=== PATIENT | female | born 1975 | race Caucasian/White ===

== ENCOUNTER 2025-05-03 20:54 | Emergency (ER) | payer BC, SELFPAY ==
--- NOTE | ~2025-05-03 | XR_ITS ---
XR knee RT 3V 05/04/2025 00:01 INDICATION: Right knee pain PROCEDURE: 4 views right knee COMPARISON: No prior studies for comparison. FINDINGS: Fracture, dislocation or subluxation is not identified. No significant joint effusion. No f oreign bodies. The soft tissues appear within normal limits. No foreign bodies are identified. IMPRESSION: 1: NO ACUTE BONE OR JOINT ABNORMALITY IDENTIFIED. Reviewed, dictated and finalized at location A.
--- OUTSIDE RECORDS SUMMARY | 2025-05-03 20:56 | XMS_ITS | Clinical Summary ---
Author Organization [place] [id number] Address [address] [place] [address] Care Team Providers Care Jacquard Loom Fixer Name Role Phone Juan Pino MD Primary Care Provi catina Allergies No known active allergies Medications aspirin 81 mg enteric coated tablet Take 1 tablet (81 mg total) by mouth daily Active valsartan-hydroC HLOROthiazide (DIOVAN-HCT) 80-12.5 mg per tabletIndication s:hypertension Take 1 tablet by mouth daily 90 tablet 3 11/20/2023 Active Active Problems Problem Noted Date Diagnosed Date Mixed anxiety and depressive disorder 01/20/2021 Hyperlipidemia 04/11/2018 Essential hypertension 04/11/2018 Depression 08/15/2016 Resolved Problems Problem Noted Date Diagnosed Date Resolved Date Morbid (severe) obesity due to excess calories 10/18/2023 10/18/2023 Body mass index 40.0-44.9, adult ([facility]) 10/18/2023 10/18/2023 Hypertensive disorder 04/11/20182023 Lipidemia 08/15/2016 10/18/2023 Essential (primary) hypertension 08/15/2016 10/18/2023 Immunizations Immunization Administration Dates Next Due Influenza, Unspecified 11/20/2023(Deferr ed: Patient Refused),10/18/2023(Deferred: Patient Refused) Surgical History Surgery Date Site/Laterality Comments APPENDECTOMY Medical History Medical History Date Comments Arthritis Pulmolithiasis Migraines in the past Depression Family History Medical History Relation Name Comments Arthritis Brother Mental illness Brother Arthritis Father Gout Father Hypertension Father Mental illness Father Arthritis Mother Hypertension Mother Kidney disease Mother Mental illness Mother Breast cancer Paternal Great-Grandmother Relation Name Status Comments Brother Father Alive Mother Paternal Great-Grandmother Social History Tobacco Use Types Packs/Day Years Used Date Smoking Tobacco: Every Day Cigarettes 0.5 30 Smokeless Tobacco: Never PHQ-2 Answer Date Recorded PHQ-2 Total Score (If total score is 3 or more points, staff should administer the PHQ-9) 0 10/18/2023 Personal Safety Answer Date Recorded Getting School Help Needed Not on file 10/17 Comments No Sex and Gender Information Value Date Recorded Sex Assigned at Not on file Legal Sex Female 2:36 PM CDT Gender Identity Female 10/19/2023 10:26 AM [employer] AP[employer]ENT[employer] Sexual Orientation Straight 10/25/2023 7: 00 PM [employer] APPRENTICE Obstetrics History Para Term AB IAB SAB Ectopic Multiple Livin g Live Births 2 1 1 Date Outcome GA Total Labor Labor/2nd/3rd Weight Sex Type Anes PTL Adeline A1 A5 Name Clin Term Last Filed Vital Signs Vital Sign Reading Time Taken Comments Blood Pressure 126/82 11/20/2023 1:01 PM [employer]ONEM[employer] APPRENTICE Pulse 108 11/20/2023 1:01 PM [employer]ONEM[employer] APPRENTICE Temperature - - Respiratory Rate 18 11/20/2023 1:01 PM [employer]ONEMASON APPRENTICE Oxygen Saturation 93% 11/20/2023 1:01 PM STONEMASON APPRENTICE Inhaled Oxygen Concentration - - Weight 100.7 kg (222 lb) 11/20/2023 1:01 PM [employer]ONEM[employer]ON APPRENTICE Height 154.9 cm (5' 1) 11/20/2023 1:01 PM [employer]ONEM[employer]ON APPRENTICE Body Mass Index 41.95 11/20/2023 1:01 PM [employer]ONEM[employer] APPRENTICE Plan of Treatment Health Maintenance Due Date Last Done Comments Colon Cancer Screening-Colonoscopy 1977 Hepatitis C Screening 1977 DTaP/Tdap/Td Vaccine (1 - Tdap) 1988 Hepatitis B Screening 1995 Pneumococcal vaccine <65 (1 of 2 - PCV) 1996 Cervical Cancer Screening 01/27/2015 01/27/2014 Depression Screening 10/18/2024 10/18/2023 Breast Cancer Screening-Mammogram 10/25/2024 024 Regular Well Visit/Exam 18-64 11/20/2024 11/20/2023 Influenza Vaccine (#1) 2025 Procedures Procedure Name Priority Date/Time Associated Diagnosis Comments SCREENING MAMMOGRAM BILATERAL W TONG Schedule Routine, Read Routine (OP Routine) 10/25/2023 3:42 PM [employer]ONEM[employer] APPRENTICE Annual physical exam THINPREP PAP Routine 01/27/2014 10:06 AM CDT from Last 3 Months or Most Recently Relevant to Health Maintenance Results * Screening Mammogram Bilateral W Tong (10/25/2023 3:42 PM STONEMASON APPRENTICE) Anatomical Region Laterality Modality Breast Bilateral Mammography Impressions 10/25/2023 4:06 PM STONEMASON APPRENTICE BI-RADS ATLAS category (overall): 1 - Negative There is no mammographic evidence of malignancy. A 1 year screening mammogram is recommended. The patient has been or will be contacted. We recommend annual screening mammography for women at average risk of breast cancer beginning at age 40, based on guidelines of the [employer] (ACR Practice Parameter for the Performance of Screening and Diagnostic Mammography) and [employer]. For women with and elevated risk of breast cancer, please refer to the ACR Practice Parameter for specific screening recommendations. The patient will be entered into a reminder system with a target due date of 1 year for her next screening exam. Narrative 10/25/2023 4:06 PM STONEMASON APPRENTICE Screening Mammogram Bilateral W Tong: 10/25/23 The study was acquired using full field digital technology and interpreted from soft copy. 2D digital mammographic views, as well as 3D digital tomosynthesis were performed in the CC and MLO projections. CLINICAL: Annual physical exam (Up with labs). No relevant medical history has been documented for this patient. History of breast cancer in Paternal Great-Grandmother. COMPARISON: Baseline Screening Mammography. No prior mammography is available for comparison. BREAST TISSUE: The breasts have scattered areas of fibroglandular density. FINDINGS: No suspicious masses, suspicious calcifications, or other suspicious findings are seen within either breast. 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 Interpretation Negative for intraepithelial lesion or malignancy. 02/03/14 District Fire Chief: PINA Andino(ASCP) 02/03/14 Verified By: PINA Andino(ASCP) electronic signature [facility], Department of Pathology For questions regarding this case, call ext. [phone] CPT Code(s) 58489 Clinical History LMP: N : N : N IUD: Y Hormone Therapy: N Postmenopausal: N Previous surgery date and type: N Hysterectomy: N Chemotherapy: N [place] Exposure: N Radiation: N Previous Abnormal Pap? Details: N Diagnostic or Screening Pap Test: Screening Performed by [facility], [address] [place] [id number] [email or web address], Grant Bauer MD - Lab. Director 01/27/2014 10:0 6 AM CDT 01/28/2014 10:02 AM CDT us Luna Do NP LAB PATHOLOGY ORDERABLES Fin al Result [facility] [employer] HISTORICAL RESULTS from Last 3 Months or Most Recently Relevant to Health Maintenance Insurance Support Your App [facility] OOS Care Teams Jacquard Loom Fixer Relationship Specialty Start Date End Date Juan Pino MD [address] [place] [address] PCP - General Family Medicine 10/18/23
--- OUTSIDE RECORDS SUMMARY | 2025-05-03 20:56 | XMS_ITS | Data Portability ---
Author Organization [facility] Address [address] [place] [address] Assessment No assessment recorded. Plan of Treatment Reminders Order Date Submit Date Provider Last Modified By Organization Details Last Modified Time Details Appointments None recorde d. Lab pap, IG + reflex HPV (16+18+ 45) 2021 022 ART Whitney [facility] (Lab), [address] [place], [address], 2 10:13:21 CMP, serum or plasma 2021 022 [facility] (Lab), [address] [place], [address], 2 14:15:44 lipid panel w/ direct LDL, serum 2021 022 [facility] (Lab), [address] [place], [address], 2 14:15:44 HbA1c (hemogl obin A1c), blood 2021 022 [facility] [address] [place], [address], 2 14:15:45 microal bumin/c reatini ne, mass ratio, urine 2021 022 [facility] (Lab), [address] [place], [address], 2 14:15:45 CMP, serum or plasma 2018 019 [facility] (Lab), [address] [place], [address], 9 20:35:26 lipid panel w/ direct LDL, serum 2018 019 [facility] (Lab), [address] [place], [address], 9 21:15:39 TSH, serum, reflex free T4 2018 019 [facility] (Lab), [address] [place], [address], 9 22:32:43 Referral None recorde d. Procedures None recorde d. Surgeries None recorde d. Imaging XR, knee 2017 018 ART Not available 8 00:59:47 Medication Orders Lexapro 10 mg tablet 2020 021 [facility], [address] [place], [address], 1 13:08:47 Lexapro 10 mg tablet 2018 019 hlucasfoster [facility], [address], [address], 1 13:06:48 meloxic am 7.5 mg tablet 2017 018 INTERFACE [facility], [address], [address], 8 13:05:47 atorvas tatin 10 mg tablet 2017 018 INTERFACE [facility], [address], [address], 8 15:15:12 amlodip ine 5 mg tablet 2017 018 [facility], [address] [facility] [address] [place] [address], [address], 8 15:15:23 lisinop ril 20 mg-hydr ochloro thiazid e 25 mg tablet 2017 018 [facility], [address] [facility] [address] [place] [address], [address], 8 15:15:12 Adult Low Dose Aspirin 81 mg tablet, delayed release 2017 018 [facility], [address] [facility] [address] [place] [address], [address], 8 15:15:12 Patient TargetsNo targets recorded. Patient Instructions Encounter Date Encounter Id Patient Instructions Last Modified By Organization Details Last Modified Time 04/11/2018 [id number] Quitting Tobacco: Care Instructions hlucasfoster Not available 04/11/2018 15:14:59 high cholesterol: care instructions hlucasfoster Not available 04/11/2018 17:19:16 FU 6 months. Health maint utd with customer service administrator. Records requestd from prev provider. hlucasfoster Not available 04/11/2018 17:19:16 05/07/2018 [id number] FU prn hlucasfoster Not available 15:40:37 06/12/2019 [id number] learning about high blood pressure hlucasfoster Not available 06/12/2019 14:38:59 learning about mood disorders hlucasfoster Not available 06/12/2019 14:38:59 Phone FU 2 weeks, OV 6 weeks. hlucasfoster Not available 06/12/2019 20:33:02 01/20/2021 [id number] Quitting Tobacco: Care Instructions hlucasfoster Not available 01/20/2021 13:17:04 learning about high blood pressure hlucasfoster Not available 01/20/2021 13:17:04 high cholesterol: care instructions hlucasfoster Not available 01/20/2021 13:17:04 Lab orders mailed to her previously. Encouraged to have done. hlucasfoster Not available 01/20/2021 13:17:03 03/28/2022 [id number] A healthy lifestyle: care instructions hlucasfoster Not available 03/28/2022 14:47:38 Quitting Tobacco: Care Instructions hlucasfoster Not available 03/28/2022 14:46:22 FU one year and prn hlucasfoster Not available 03/28/2022 14:51:35 Reason for Referral None Reported. Results Created Date Observation Date Name Description Value Unit Range Abnormal Flag Note LastModifiedBy Organization Detail LastModifiedTime 06/12/20 19 06/12/2019 CMP, serum or plasm a glucose, serum 98 mg/dL 65-99 Not Available [facility] (Lab) [address] [facility], [place], [address], 06/12/2019 20:35:26 06/12/2006/12/2019 CMP, serum or plasm a BUN 8 mg/dL 8- Not Available [facility] (Lab) [address] [facility], [place], [address], 06/12/2019 20:35:26 06/12/2006/12/2019 CMP, serum or plasm a creatinine, serum 0.76 mg/dL 0.50-[address] [facility] (Lab) [address] [facility], [place], [address], 06/12/2019 20:35:26 06/12/2006/12/2019 CMP, serum or plasm a BUN/creatnin e ratio 10.5 Not Available [facility] ([facility] [address] [facility], [place], [address], 06/12/2019 20:35:26 06/12/2006/12/2019 CMP, serum or plasm a sodium, serum 139.9 mEq/L 136.0- 144.[address] [facility] (Lab) [address] [place], [address], 06/12/2019 20:35:26 06/12/2006/12/2019 CMP, serum or plasm a potassium, serum 3.8 mmol/ L 3.5-5. [address] [facility] (Lab) [address] [place], [address], 06/12/2019 20:35:26 06/12/20 19 06/12/2019 CMP, serum or plasm a chloride, serum 95 mmol/ l 101-11 1 low Not Available [facility] (Lab) [address], [place], [address], 06/12/2019 20:35:26 06/12/20 19 06/12/2019 CMP, serum or plasm a carbon dioxide total 32.0 mmol/ L 21.0-3 2.0 Not Available [facility] (Lab) [address], [place], [address], 06/12/2019 20:35:26 06/12/20 19 06/12/2019 CMP, serum or plasm a aniongp 17.0 mmol/ L Not Available [facility] (Lab) [address], [place], [address], 06/12/2019 20:35:26 06/12/20 19 06/12/2019 CMP, serum or plasm a calcium, serum 10.2 mg/dL 8.2-10 .[address] [facility] (Lab) [address], [place], [address], 06/12/2019 20:35:26 06/12/2006/12/2019 CMP, serum or plasm a total protein 7.2 g/dL 6.7-8. 2 Not Available [facility] (Lab) [address] [place], [address], 06/12/2019 20:35:26 06/12/20 19 06/12/2019 CMP, serum or plasm a albumin, serum 4.6 g/dL 3.5-5. 5 Not Available [facility] (Lab) [address] [place], [address], 06/12/2019 20:35:26 06/12/2006/12/2019 CMP, serum or plasm a agratio 1.[address] [facility] (Lab) [address] [place], [address], 06/12/2019 20:35:26 06/12/20 19 06/12/2019 CMP, serum or plasm a bilt 0.4 mg/dL 0.0-1. [address] [facility] (Lab) [address] [place], [address], 06/12/2019 20:35:26 06/12/20 19 06/12/2019 CMP, serum or plasm a AST 36.5 U/L 10.0-[address] [facility] (Lab) [address], [place], [address], 06/12/2019 20:35:26 06/12/20 19 06/12/2019 CMP, serum or plasm a ALT 50.1 U/L 10.0-[address] [facility] (Lab) [address], [place], [address], 06/12/2019 20:35:26 06/12/2006/12/2019 CMP, serum or plasm a alk phos 66.6 IU/L 42.0-[address] [facility] (Lab) [address] [place], [address], 06/12/2019 20:35:26 06/12/2006/12/2019 CMP, serum or plasm a osmol 277.0 mOsm/ L 275.0- 301.[address] [facility] (Lab) [address] [place], [address], 06/12/2019 20:35:26 06/12/2006/12/2019 CMP, serum or plasm a eGFR, AM 108 m/lmi n/1.7 3_m >=[address] [facility] (Lab) [address] [place], [address], 06/12/2019 20:35:26 06/12/20 19 06/12/2019 CMP, serum or plasm a eGFR, non- AM 89 mL/mi n/1.7 3/m >=60 Not Available [facility] (Lab) [address], [place], [address], 06/12/2019 20:35:26 06/12/20 19 06/12/2019 lipid panel w/ direc t LDL, serum cholesterol 189.2 mg/dL 140.0- 200.0 Not Available [facility] (Lab) [address], [place], [address], 06/12/2019 21:15:39 06/12/20 19 06/12/2019 lipid panel w/ direc t LDL, serum triglyceride s 153 mg/dL <=150 high Not Available [facility] (Lab) [address] [place], [address], 06/12/2019 21:15:39 06/12/20 19 06/12/2019 lipid panel w/ direc t LDL, serum HDL cholesterol 54.9 mg/dL 40.0-1 00.0 Not Available [facility] (Lab) [address], [place], [address], 06/12/2019 21:15:39 06/12/20 19 06/12/2019 lipid panel w/ direc t LDL, serum LDL 125 mg/dL <=100 high Not Available [facility] (Lab) [address], [place], [address], 06/12/2019 21:15:39 06/12/20 19 06/12/2019 lipid panel w/ direc t LDL, serum cholhdl 3.40 mg/dL 0.00-4 .98 Not Available [facility] (Lab) [address], [place], [address], 06/12/2019 21:15:39 06/12/20 19 06/12/2019 TSH, serum , refle x free T4 TSH 1.07 uIU/m L 0.50-4 .50 Not Available [facility] (Lab) [address] [place], [address], 06/12/2019 22:32:43 03/29/20 22 03/31/2022 IGP, APTIM A HPV, RFX 16/18 ,45 diagnosis: [facility] NEGAT GENET FOR INTRA EPITH ELIAL LESIO N OR NADER SERJIO . Perfo rmed at: WB Not Available [facility] [address] [place], [address], 03/31/2022 10:13:21 03/29/20 22 03/31/2022 IGP, APTIM A HPV, RFX 16/18 ,45 specimen adequacy: [facility] Satis facto ry for evalu ation . Endoc ervic al and/o r squam ous metap lasti c cells (endo cervi nhan compo nent) are prese nt. Perfo rmed at: WB Not Available [facility] (Lab) [address] [facility], [place], [address], 03/31/2022 10:13:21 03/29/20 22 03/31/2022 IGP, APTIM A HPV, RFX 16/18 ,45 clinician provided ICD10 [facility] Z01.4 19 Perfo rmed at: WB Not Available [facility] (Lab) [address] [place], [address], 03/31/2022 10:13:21 03/29/20 22 03/31/2022 IGP, APTIM A HPV, RFX 16/18 ,45 performed by: [facility] Skye Keller Cytobruno echsanjuana medina t (ASCP ) Perfo rmed at: WB Not Available [facility] ([facility] [address] [place], [address], 03/31/2022 10:13:21 03/29/20 22 03/31/2022 IGP, APTIM A HPV, RFX 16/18 ,45 Pap smear, 1 slide . Perfo rmed at: WB Not Available [facility] (Lab) [address] [place], [address], 03/31/2022 10:13:21 03/29/20 22 03/31/2022 IGP, APTIM A HPV, RFX 16/18 ,45 note: PAPSMR The Pap smear is a scree edson test desig ewdin to aid in the detec tion of feliciano ligna nt and malig nant condi tions of the uteri ne cervi x. It is not a diagn ostic proce dure and shoul d not be used as the sole means of detec ting cervi nhan cance r. Both false -posi tive and false -nega tive repor ts do occur . . Perfo rmed at: WB Not Available [facility] (Lab) [address] [facility], [place], [address], 03/31/2022 10:13:21 03/29/20 22 03/31/2022 IGP, APTIM A HPV, RFX 16/18 ,45 test methodology: IGLPAP This liqui d based ThinP rep(R ) pap test was scree edwin with the use of an image guide d yury chen. Perfo rmed at: WB Not Available [facility] [address] [facility], [place], [address], 03/31/2022 10:13:21 03/29/20 22 03/31/2022 IGP, APTIM A HPV, RFX 16/18 ,45 HPV aptima Negati ve negati ve This nucle ic acid ampli ficat ion test detec ts fourt een high- risk HPV types (16,1 8,31, 33,35 ,39,4 5,51, 52,56 ,58,5 9,66, 68) witho ut diffe renti ation . Perfo rmed at: =G Not Available [facility] (Lab) [address] [facility], [place], [address], 03/31/2022 10:13:21 05/13/20 18 05/10/2018 XR, knee No observ ation record ed. [facility] [address], [place], [address], 05/21/2018 14:36:34 05/20/20 18 01/30/2018 XR, foot No observ ation record ed. BARCODE Not Available 2017 09:08:45 06/05/20 18 MRI knee RT wo con [facility] [address] [place] [address] EXAMIN ATION: MRI right knee withou t contra st ACCESS ION: [id number] EXAM DATE/T JESSIE: 018 1:51 PM REASON FOR EXAM: Right it risk advisor ior latera l knee pain. Histor y of twisti ng injury one month prior COMPAR WESLEY: None TECHNI QUE: Multip lanar, multis equenc e MRN images target ed to the right knee obtain ed withou t contra st. FINDIN GS: Physio logic joint fluid presen t. There is a tiny Prescott' s cyst. There is a comple te tear of the anteri or crucia te ligame nt at its femora l attach ment. Alignm ent is anatom ic. No signif icant tibiof emoral sublux ation. No signif icant perili gament ous edema seen to sugges t an acute injury . There is an accomp anying osseou s contus ion of the it risk advisor ior latera l tibial platea u. There is no recipr ocal the femora l condyl e contus ion identi fied. The proxim al fibula r collat eral ligame nt is thicke edwin and diamet er sugges ting a grade 2 sprain . Remain ing it risk advisor ior latera l corner struct ures appear to be normal . Poplit eal tendon is unrema rkable There is feathe ry edema of the latera l head of the gastro cnemiu s compat ible with a grade 1 muscle strain . No other areas of muscle edema seen. [employer] ior crucia te ligame nt is normal . The medial collat eral ligame nt is unrema rkable . Semime mbrano mendel is normal . Small septat ed cystic struct ure closel y associ ated with the medial menisc al anteri or horn and root juncti on. 8 is uncert ain if this repres ents a para menisc al cyst relate d to an anteri or menisc al horn root juncti on menisc al tear or a small gangli on. Latera l menisc us is intact . Intact medial and latera l patell ar retina cula. The extens or mechan ism includ ing the georges ceps and patell ar tendon are normal . Mass subtle locali zed edema in the superi or-lat eral aspect of Hoffa' s fat pad can be seen with patell ar tendon latera l femora l condyl e fricti on syndro me. There is medial patell ar articu lar cartil age diffus e thinni ng. There is cartil age surfac e frayin g over the patell ar apex. Partia l thickn ess trochl ear cartil age fissur ing presen t. Mild cartil age thinni ng over the centra l weight bearin g medial femora l condyl e noted. No full-t hickne ss tibiof emoral subcho ndral defect s seen. IMPRES LORENA:= ==== 1. Right knee comple te anteri or crucia te ligame nt tear at its femora l attach ment, appear ing chroni c withou t signif icant perili gament ous soft tissue edema. 2. Persis tent small bony contus ion of the it risk advisor ior latera l tibial platea u withou t recipr ocal femora l condyl e injury . 3. Manager Radio olater al corner injury with a grade 2 sprain of the fibula r collat eral ligame nt. 4. Medial menisc al anteri or horn root juncti on possib le tear with adjace nt small promin ent menisc al cysts as is a gangli on. 5. Subtle superi or-lat eral Hoffa' s fat pad edema that can be seen with patell ar tendon latera l femora l condyl e fricti on syndro me. 6. Early chondr omalac ia, predom inantl y with medial and apical patell ofemor al and mild medial compar tment cartil age diseas e. 7. See above for detail . Electr onical ly Signed By: Melquiades Gutierrez MD on 018 3:12 PM [facility] [address] [facility], [place], [address], 06/10/2018 18:50:08 06/05/20 18 06/05/2018 MRI, knee, w/o contr ast No observ ation record ed. [email or web address] [facility] Fax [address] [facility], [place], [address], 06/06/2018 18:14:56 Result Notes None recorded. Problems Name Problem SNOMED Code Status Onset Date Resolution Date Notes Provider Name and Address Organization Details Recorded Time Essential hypertension 75465801 Active 2017 Not Available [facility] 21:32:39 Tobacco user 076177806 Active 2017 Not Available [facility] 21:32:39 Hypertensive disorder 85295086 Active 2017 Not Available [facility] 21:32:39 Hyperlipidemi a 28563115 Active 2017 Not Available [facility] 21:32:39 Mixed anxiety and depressive disorder 909736753 Active 2020 Not Available [facility] 21:32:39 Problem Notes None recorded. Medical Equipment None Reported. Allergies No known drug allergies Medications Name Sig Start Date Stop Date Status Note LastModified by Organization Details LastModified Time atorvastatin 10 mg tablet Take 1 tablet by mouth once daily active Not Available Not Available No t Available prednisone 20 mg tablet TAKE 2 TABLETS BY MOUTH ONCE DAILY FOR 5 DAYS active Not Available Not Available No t Available amlodipine 5 mg tablet TAKE 1 TABLET BY MOUTH ONCE DAILY active Not Available Not Available No t Available meloxicam 7.5 mg tablet TAKE 1 TABLET BY MOUTH TWICE DAILY NEEDED 2017 active Not Available Not Available Not Avai lable lisinopril 20 mg-hydrochloro thiazide 25 mg tablet TAKE 1 TABLET BY MOUTH ONCE DAILY active Not Available Not Available No t Available Baby Aspirin 81 mg chewable tablet Chew 1 tablet every day by oral route. active Not Available Not Available No t Available Adult Low Dose Aspirin 81 mg tablet,delayed release Take 1 tablet every day by oral route. 2017 active Not Available Not Available Not Avai lable escitalopram 10 mg tablet TAKE 1 TABLET BY MOUTH ONCE DAILY active Not Available Not Available No t Available Vitals Date Recorded Body height Body mass index (BMI) Body weight Oxygen saturation Oxygen saturation in Arterial blood by Pulse oximetry Body temperature Systolic And Diastolic Provider Name and Address Organization Details Last Updated DateTime 2 154.94 cm 39.6 kg/m2 18995.6 1 g 98 % 98 % 97.9 [degF] 134/80 mm[Hg] Holly Perdomo MA [facility] 2 14:08:59 Date Recorded Body weight Heart rate Body temperature Systolic And Diastolic Provider Name and Address Organization Details Last Updated DateTime 04/11/2018 64494.38 g 88 /min 98.2 [degF] 127/90 mm[Hg] Kaela Newsome MA [facility] 04/11/2018 14:54:40 Date Recorded Body weight Heart rate Body temperature Systolic And Diastolic Provider Name and Address Organization Details Last Updated DateTime 05/07/2018 13069.35 g 91 /min 98 [degF] 124/87 mm[Hg] Kaela Newsome MA [facility] 05/07/2018 12:55:40 Date Recorded Body height Body mass index (BMI) Body weight Heart rate Body temperature Systolic And Diastolic Provider Name and Address Organization Details Last Updated DateTime 9 158.75 cm 39.1 kg/m2 09880.3 4 g 114 /min 98.8 [degF] 120/86 mm[Hg] Kaela Newsome MA [facility] 9 14:16:40 Social History Question Answer Notes LastModified by Organizat ion Details LastModified Time Tobacco Smoking Status Current Every Day Smoker Kaela Newsome MA null, [facility] 04/11/2018 14:56:52 What Was The Date Of Your Most Recent Tobacco Screening? 03/28/2022 Information not available 03/28/2022 On What Date Was Tobacco Cessation Counseling Provided? 03/28/2022 Information not available 03/28/2022 Sex: Unknown Functional Status None recorded. Mental Status None recorded. Family History Nothing Reported. Medical History Condition Response Coronary Artery Disease N Other N Atrial Fibrillation Y High Blood Pressure Y Depression N COPD N Blood Clots N Anxiety Disorder N Muscle, Joint, or Bone Problems N Acid Reflux (GERD) N Cancer N Stroke N Headaches N Kidney or Bladder Problems N Eating Disorder N Skin Problems N Asthma N Allergies N Substance Abuse N Hepatitis N ADHD N High Cholesterol N Liver Disease N Schizophrenia N Thyroid Problems N GI Problems N Anemia N Heart Attack ([place]) N Diabetes N Seizures/Epilepsy N Osteoporosis N Heart Failure N Gynecological HistoryNo gynecological history recorded. Obstetrics History GPAL:G 0 P 0 0 0 0 Past Encounters Encounter ID Performer Location Encounter Start Date Encounter Closed Date Diagnosis/Indication Diagnosis SNOMED-CT Code Diagnosis ICD10 Code Diagnosis Note [id number] Mireille zarco MD [facility] (Adult Med) [address] [place] [address] 04/11/2018 14:32:58 04/11/2018 16:50:05 Tobacco user 217289872 Z72.0 Cutting back and plans stop. Hypertensive disorder 38 640680 I10 Hyperlipidemia 99395107 E78.5 Foot callus 542835250 L8 4 Described DAILY debridemen t at home with salicylic acid, shave, pumice stone. May need to return to different tube splicer due to extent of callous on great toe. [id number] Mireille zarco MD [facility] (Adult Med) [address] [place] [address] 05/07/2018 12:40:45 05/07/2018 15:49:52 Pain in right knee 5098956540 06709 M25.561 ? meniscal injury. Crutches, ice three times daily, avoid wt bearing and if still with sx, consider MRI and ortho eval. 7-10 days. If MRI needed, would like go to [facility]. [id number] Mireille zarco MD [facility] (Adult Med) [address] [place] [address] 06/12/2019 14:03:20 06/12/2019 15:22:19 Essential hypertension 22520225 I10 at goal Fatigue 39601426 R53.83 suspect Depressive disorder 3548 9007 F32.9 FU by phone or portal 2 weeks and OV 6 weeks. Risks, benefits side effects and time to onset medication reviewed. [id number] Mireille zarco MD [facility] (Adult Med) [address] [place] [address] 01/20/2021 12:45:53 01/21/2021 11:36:52 Mixed anxiety and depressive disorder 857282442 F41.8 Chronic, untreated. Retry Lexapro - minimum 8 week trial and fu 8 weeks Essential hypertension 32246086 I10 Pt reports at goal but not actually checking BP. Update labs. Hyperlipidemia 82595332 E78.5 Compliant with statin Tobacco user 001135118 Z 72.0 Cutting back and plans stop eventually . [id number] Mireille zarco MD [facility] (Peds) [address] [place] [address] 03/28/2022 13:54:52 03/29/2022 13:09:39 Essential hypertension 35866827 I10 At goal off medication after wt loss and cut back tobacco. Cont with same. Monitor home BP, is aware of goal BP < 140/90/ Hyperlipidemia 60625648 E78.5 Stopped statin. Hold for now. ASCVD risk low with resolution of HTN. Smoker 97998018 F17.200 Gynecologi c examination 39713875 Z01.419 Will contact customer service administrator about change out Mirena Obesity 382038064 E66.9 Health Concerns Section Related Observation LastModified by Organization Detai ls LastModified Time None Recorded Concern Status LastModified by Organization Details LastModified Time None Recorded Advance Directives Directive None Recorded Payers Insurance Date Sequence Insurance Name Policy Number Policy Ang Covered Member ID Ang Member ID Guarantor Name 03/28/2022 1 [id number] Hiro Trinidad [id number] Veronica Trinidad Notes Date Note Type Note Provider Name and Address Organization Details Recorded Time 04/11/2018 text/html HTN contolled.Hyperlipi demia - on statinTobacco - cutting back Had labs wtih prev PCP last month. Believes all normal except maybe anemic, but always anemic Mireille Felton MD Attn: Accounting,[address] [place], [address], [facility] 04/11/2018 17:22:26 05/07/2018 text/html 04/27 Slipped on wet concrete steps at relatives house. Rapidly extended right leg in effrt to bance then stepped now hard on the leg, felt/heard a pop in R knee and immediate pain. Since then pain at rest and with ambulate, some swelling. SImilar sx 20 years ago after twisting injury (resolved). Mireille Felton MD Attn: [address]ing[address] , [place], [address], [facility] 05/07/2018 15:40:49 06/12/2019 text/html Fatigue, malaise , crying spells and anxiousness. Under stress with impending move, other issues but feels her emotions are not proportional. Hx of similar sx in past, recalls Lexapro and Abilify in past. Good support, no etoh, drugs, + tobacco but has cut back. HTN contolled. Needs updated labs.Hyperlipidemia - on statin Mireille Felton MD Attn: Accounting,[address] [facility], [place], [address], [facility] - [facility] 06/12/2019 20:33:24 01/20/2021 text/html Fatigue, malaise , crying spells and anxiousness. Under stress due to variety of issues but feels her emotions are not proportional. Reported same sx last OV 05/2019 and Lexapro restarted but only took for short time without benefit and didn't fu. No SI/STGood support, no etoh, drugs, + tobacco but has cut back. HTN good but only checking sporadically. Last check 6 months ago 120/70s. Needs updated labs. Hyperlipidemia - on statin Health maint - last pap 5 years. Deferring mamm due to low risk. Mireille Felton MD Attn: Accounting,[address] [facility], [place], [address], [facility] 01/20/2021 13:17:21 03/28/2022 text/html Last OV 01/2021 HTN - stopped taking all meds 6 months ago and at goal today. No home checks. Ran out of meds and never requested refills. Hyperlipidemia - stopped statin Health maint - last pap > 5 years. Deferring mamm due to low risk. Tobacco - 3-4 per day, down from half pack per day. Obesity - believes lost 20 lbs last month when experienced allergic reaction after mowing and had malaise, fatigue, feeling hot, rash and poor appetite with resultant wt loss. Went to UC after week of sx, rcd prednisone and had complete resolution of sx. Mireille Felton MD Attn: Accounting,[address] [facility], [place], [address], [place] 03/28/2022 15:01:46 OBGyn Episode No OBEpisode recorded.
--- OUTSIDE RECORDS SUMMARY | 2025-05-03 20:56 | XMS_ITS | Encounter Summary ---
Author Organization [facility] Facility Care Team Providers Care River Guide Name Role Phone Mireille Felton MD Primary Care Prov ider Juan Pino MD Primary Care Provi catina Encounter Details Date Type Department Care Team (Latest Contact Info) Description 12/30/2013 Orders Only MMG CLINCONV ProviderDoug MD [address] [place] [address] Social History Tobacco Use Types Packs/Day Years Used Date Smoking Tobacco: Never Assessed Comments Unknown Sex and Gender Information Value Date Recorded Sex Assigned at Not on file Legal Sex Female 2:36 PM CDT Gender Identity Female 10/19/2023 10:26 AM UTILITY SALES AND SERVICE MANAGER Sexual Orientation Straight 10/25/2023 7: 00 PM UTILITY SALES AND SERVICE MANAGER documented as of this encounter Plan of Treatment Not on file documented as of this encounter Procedures Procedure Name Priority Date/Time Associated Diagnosis Comments SCAN - LABS 08/15/2016 12:00 AM CDT documented in this encounter Results * SCAN - LABS (08/15/2016 12:00 AM CDT) Narrative 08/15/2016 12:00 AM CDT Ordered by an unspecified provider. Historical Provider Final Res ult documented in this encounter Visit Diagnoses Not on filedocumented in this encounter Care Teams River Guide Relationship Specialty Start Date End Date Mireille Felton MD PCP - General Family Medicine 06/14/18 10/17/23 Juan Pino MD [address] [address] PCP - General Family Medicine 10/18/23 documented as of this encounter
--- OUTSIDE RECORDS SUMMARY | 2025-05-03 20:56 | XMS_ITS | Referral Summary ---
Author Organization [place] [id number] [facility] Address [address] [place] [address] Care Team Providers Care Shoe Worker Name Role Phone Juan Pino MD Primary [...] 10/18/2023 10/18/2023 Body mass index 40.0-44.9, adult ([facility]) 10/18/2023 10/18/2023 Hypertensive disorder 04/11/20182023 Lipidemia 08/15/2016 10/18/2023 Essential (primary) hypertension 08/15/2016 10/18/2023 Immunizations Immunization Administration Dates Next Due Influenza, Unspecified 11/20/2023(Deferr ed: Patient Refused),10/18/2023(Deferred: Patient Refused) Social History Tobacco Use Types Packs/Day Years [...] CDT Gender Identity Female 10/19/2023 10:26 AM MANPOWER DEVELOPMENT ADVISOR Sexual Orientation Straight 10/25/2023 7: 00 PM MANPOWER DEVELOPMENT ADVISOR Last Filed Vital Signs Vital Sign Reading Time Taken Comments Blood Pressure 126/82 11/20/2023 1:01 PM MANPOWER DEVELOPMENT ADVISOR Pulse 108 11/20/2023 1:01 PM MANPOWER DEVELOPMENT ADVISOR Temperature - - Respiratory Rate 18 11/20/2023 1:01 PM MANPOWER DEVELOPMENT ADVISOR Oxygen Saturation 93% 11/20/2023 1:01 PM MANPOWER DEVELOPMENT ADVISOR Inhaled Oxygen Concentration - - Weight 100.7 kg (222 lb) 11/20/2023 1:01 PM MANPOWER DEVELOPMENT ADVISOR Height 154.9 cm (5' 1) 11/20/2023 1:01 PM MANPOWER DEVELOPMENT ADVISOR Body Mass Index 41.95 11/20/2023 1:01 PM MANPOWER DEVELOPMENT ADVISOR Plan of Treatment Not on file Procedures Procedure Name Priority Date/Time Associated Diagnosis Comments SCREENING MAMMOGRAM BILATERAL W TONG Schedule Routine, Read Routine (OP Routine) 10/25/2023 3:42 PM MANPOWER DEVELOPMENT ADVISOR Annual physical exam THINPREP PAP Routine 01/27/2014 10:06 AM CDT from Last 3 Months or Most Recently Relevant to Health Maintenance Results * Screening Mammogram Bilateral W Tong (10/25/2023 3:42 PM MANPOWER DEVELOPMENT ADVISOR) Anatomical Region Laterality Modality Breast Bilateral Mammography Impressions 10/25/2023 4:06 PM MANPOWER DEVELOPMENT ADVISOR BI-RADS ATLAS category (overall): 1 - Negative There is no mammographic evidence of malignancy. A 1 year screening mammogram is recommended. The patient has been or will be contacted. We recommend annual screening mammography for women at average risk of breast cancer beginning at age 40, based on guidelines of the [place] [employer] (ACR Practice Parameter for the Performance of Screening and Diagnostic Mammography) and [place] [employer]. For women with and elevated risk of breast cancer, please refer to the ACR Practice Parameter for specific screening recommendations. The patient will be entered into a reminder system with a target due date of 1 year for her next screening exam. Narrative 10/25/2023 4:06 PM MANPOWER DEVELOPMENT ADVISOR Screening Mammogram Bilateral W Tong: 10/25/23 The [...] within either breast. us Juan Pino MD IM MAMMO PROCEDURE S Final Result * ThinPrep Pap (01/27/2014 10:06 AM CDT) Thin Prep Pap Smear SEE BELOW () 02/03 11:44 AM CDT [facility] HISTORICAL RESULTS Comment: Assistant Director Of Financial Aid ThinPrep Cytology Final Report ThinPrep Pap Specimen Source Cervix/Endocervix Specimen Adequacy Satisfactory for interpretation, endocervical cells (transformation zone) not present. Interpretation Negative for intraepithelial lesion or malignancy. 02/03/14 Resident Surgeon: PINA Andino(ASCP) 02/03/14 Verified By: PINA Andino(ASCP) electronic signature [facility], Department of Pathology For questions regarding this case, call ext. [phone] CPT Code(s) 45431 Clinical History LMP: N : N : N IUD: Y Hormone Therapy: N Postmenopausal: N Previous surgery date and type: N Hysterectomy: N Chemotherapy: N ISRAEL Exposure: N Radiation: N Previous Abnormal Pap? Details: N Diagnostic or Screening Pap Test: Screening Performed by [employer], [address] [place] [id number] [email or web address], Grant Bauer MD - Lab. Director 01/27/2014 10:0 6 AM CDT 01/28/2014 10:02 AM CDT us Luna Do FOOD SERVICE HOTEL RUNNER LAB PATHOLOGY ORDERABLES Fin al Result [facility] HISTORICAL RESULTS from Last 3 Months or Most Recently Relevant to Health Maintenance Insurance [employer] [facility] OOS Care Teams Shoe Worker Relationship Specialty Start Date End Date Juan Pino MD [address] [place] [address] PCP - General Family Medicine 10/18/23
--- OUTSIDE RECORDS SUMMARY | 2025-05-03 20:56 | XMS_ITS | Continuity of Care Document ---
Author Organization [facility] Address [address] [place] [address] Phone Care Team Providers Care Enrollment Management Manager Name Role Phone Irvin Joe PT Unavailable Unavailable Procedures Procedure Date PT Re-evaluation Therapeutic Exercise Therapeutic Activities Neuromuscular Re-Ed Therapeutic Exercise Therapeutic Activities Neuromuscular Re-Ed Therapeutic Exercise Therapeutic Activities Neuromuscular Re-Ed Manual Therapy PT Evaluation Moderate Complexity Therapeutic Exercise Therapeutic Activities Manual Therapy Advance Directives Directive Yes / No Effective Date File Name No Information Encounters Encounter Description Practice Location Reason(s) For Visit Diagnoses Date Provider Providers Copied on Encounter [facility], [place], [place], [id number], tel:[phone] [place] Pain in right kneeStiffness of right knee, not elsewhere classifiedMuscle weakness (generalized)Other specified disorders of muscleUnspecified abnormalities of gait and mobility 8 Tatyana Bryan. . [facility], [place], [place], [id number], [place] tel:[phone] [facility] Pain in right kneeStiffness of right knee, not elsewhere classifiedMuscle weakness (generalized)Other specified disorders of muscleUnspecified abnormalities of gait and mobility 8 Tatyana Bryan. . [facility], [place], [place], [address], tel:[phone] [place] Pain in right kneeStiffness of right knee, not elsewhere classifiedMuscle weakness (generalized)Other specified disorders of muscleUnspecified abnormalities of gait and mobility 8 Tatyana Bryan. . [facility], [place], [place], [address], tel:[phone] [facility] Pain in right kneeStiffness of right knee, not elsewhere classifiedMuscle weakness (generalized)Other specified disorders of muscleUnspecified abnormalities of gait and mobility 8 Tatyana Bryan. . Family History Family Member Type Diagnosis Age At Onset No Information Payers Payer name Insurance type Covered alliance party ID Kera mendosa(s) [facility] [id number] Social History Type Description Quantity Date Captured Comments Sex Female Smoking Status No Information Chief Complaint And Reason For Visit No Information Reason For Referral Reason For Referral No Information History Of Present Illness Encounter Date Complaint History Of Prese nt Illness No Information Functional Status Date Functional Assessmen t No Information Instructions Date Instruction Additional Infor mation No Information Assessments Type Assessment Date No Information Patient Care Teams Name Effective Dates (start - stop) Status Members No Information
--- OUTSIDE RECORDS SUMMARY | 2025-05-03 20:56 | XMS_ITS | Encounter Summary ---
Author Organization [facility] Address [address] [place] [address] Care Team Providers Care All Purpose Clerk Name Role Phone Mireille Austin MD Primary Care Provider Encounter Details Date Type Department Care Team (Late st Contact Info) Description 03/18/2018 Abstract [facility] Conversion Rebekah Ang FNP-BC [address] [facility] [[email or web address]], [place] [address] Social History Tobacco Use Types Packs/Day Years Used Date Smoking Tobacco: Never Assessed Comments Unknown Sex and Gender Information Value Date Recorded Sex Assigned at Not on file Legal Sex Female 6:37 PM CDT Gender Identity Not on file Sexual Orientation Not on file documented as of this encounter Miscellaneous Notes * Letter - SATISH Garcia - 03/18/2018 12:00 AM CDT 03-18-2018 , Veronica [address] [place] [address] : 1975 Lab Order: CBC with diff R79.9 abnormal finding of blood chemistry, unspecified Fasting [] Non-Fasting [] Normal [x] Stat [] To have drawn in 1 month Electronically Signed By: Rebekah Ang REJECT OPENER UNITY SERVICE PATROL OFFICER * Letter - SATISH Garcia - 03/18/2018 12:00 AM CDT 03-18-2018 , Veronica Trinidad [address] [place] [id number] : 1975 Lab Order: CMP, lipid panel Fasting [x] Non-Fasting [] Normal [x] Stat [] To have drawn in 6 months Electronically Signed By: Rebekah Ang REJECT OPENER UNITY SERVICE PATROL OFFICER documented in this encounter Plan of Treatment Not on file documented as of this encounter Visit Diagnoses Not on filedocumented in this encounter Care Teams All Purpose Clerk Relationship Specialty Start Date End Date Mireille Austin MD [address] [place] [address] PCP - General 08/02/12 documented as of this encounter
--- OUTSIDE RECORDS SUMMARY | 2025-05-03 20:56 | XMS_ITS | Clinical Summary ---
Author Organization [facility] Address [address] [place] [address] Care Team Providers Care Concession Attendant Name Role Phone iMreille Austin MD Primary Care Provider Social History Tobacco Use Types Packs/Day Years Used Date Smoking Tobacco: Never Assessed Comments Unknown Sex and Gender Information Value Date Recorded Sex Assigned at Not on file Legal Sex Female 6:37 PM CDT Gender Identity Not on file Sexual Orientation Not on file Last Filed Vital Signs Vital Sign Reading Time Taken Comments Blood Pressure 172/130 03/13/2018 1:18 PM CDT Pulse 99 03/13/2018 1:18 PM CDT Temperature - - Respiratory Rate - - Oxygen Saturation - - Inhaled Oxygen Concentration - - Weight 99.9 kg (220 lb 4 oz) 03/13/2018 1:18 PM CDT Height 160 cm (5' 3) 03/13/2018 1:18 PM CDT Body Mass Index 39.02 03/13/2018 1:18 PM CDT Plan of Treatment Health Maintenance Due Date Last Done Comments Cervical Cancer Screening Pa p Smear (Age 30 to 64) Every 3 Years 1977 Colorectal Cancer Screening Colonoscopy (10 Years) 1977 Annual Physical 1980 Hepatitis C 1995 DTaP, Tdap and Td Vaccines ( 1 - Tdap) 1996 Hepatitis B Vaccines (1 of 3 - 19+ 3-dose series) 1996 Cervical Cancer Screening Pa p with HPV Testing (Age 30 to 64) Every 5 Years 2007 Cervical Cancer Screening with HPV 2007 Mammogram Screening 2017 COVID-19 Vaccine (2023-2 5 season) 2024 Meningococcal B Vaccine Aged Out No l onger eligible based on patient's age to complete this topic Meningococcal Vaccine Aged Out No shane jean claude eligible based on patient's age to complete this topic Pneumococcal Vaccine: Pediat rics (0 to 5 Years) and At-Risk Patients (6 to 49 Years) Aged Out No longer eligible b ased on patient's age to complete this topic RSV Immunizations Under 20 Months Aged Out No longer eligible based on patient's age to complete this topic Insurance Care Teams Concession Attendant Relationship Specialty Start Date End Date Mireille Austin MD [address] [place] [address] PCP - General 08/02/12
--- OUTSIDE RECORDS SUMMARY | 2025-05-03 20:56 | XMS_ITS | Encounter Summary ---
Author Organization [facility] Address [facility] [place] [address] Care Team Providers Care Medical Affairs Director Name Role Phone Mireille Austin MD Primary Care Provider Encounter Details Date Type Department Care Team (Late st Contact Info) Description 03/22/2019 Abstract [facility] CONVERSION [address] [place] [address] , Generic Conversion, Social History Tobacco Use Types Packs/Day Years Used Date Smoking Tobacco: Never Assessed Comments Unknown Sex and Gender Information Value Date Recorded Sex Assigned at Not on file Legal Sex Female 6:37 PM CDT Gender Identity Not on file Sexual Orientation Not on file documented as of this encounter Plan of Treatment Not on file documented as of this encounter Visit Diagnoses Not on filedocumented in this encounter Care Teams Medical Affairs Director Relationship Specialty Start Date End Date Mireille Austin MD [address] [place] [address] PCP - General 08/02/12 documented as of this encounter
--- OUTSIDE RECORDS SUMMARY | 2025-05-03 20:56 | XMS_ITS | Encounter Summary ---
Author Organization [facility] Address [facility] [place] [address] Care Team Providers Care Slicing Machine Feeder Name Role Phone Mireille Austin MD Primary Care Provider Encounter Details Date Type Department Care Team (Latest Contact Info) Description 08/20/2018 Abstract [facility] , Generic Jermaine, Social History Tobacco Use Types Packs/Day Years [...] on filedocumented in this encounter Care Teams Slicing Machine Feeder Relationship Specialty Start Date End Date Mireille Austin MD [address] [place] [address] PCP - General 08/02/12 documented as of this encounter
[2025-05-03 20:58] VITALS: BP 165/111; PULSE 73; RESP 16; TEMP 37.1; O2SAT 97
[2025-05-03 23:25] VITALS: BP 170/116; PULSE 78; RESP 18; TEMP 36.6; O2SAT 98
--- OUTSIDE RECORDS SUMMARY | 2025-05-03 23:25 | XMS_ITS | Encounter Summary ---
Author Organization [facility] Address [address] [place] [address] Care Team Providers Care Grade School Teacher Name Role Phone Mireille Austin MD Primary Care Provider Encounter Details Date Type Department Care Team (Late st Contact Info) Description 03/18/2018 Abstract [facility] Conversion Rebekah Ang FNP-BC [address] [facility], [place] [address] Social History Tobacco Use Types Packs/Day Years [...] AM CDT 03-18-2018 , Veronica [address] [place] [address] : 1975 Lab Order: CBC with diff R79.9 abnormal finding of blood chemistry, unspecified Fasting [] Non-Fasting [] Normal [x] Stat [] To have drawn in 1 month Electronically Signed By: Rebekah Ang SENIOR DIRECTOR INSIGHT TOR OF PHOTOGRAPHY AND PRINTS * Letter - SATISH Garcia - 03/18/2018 12:00 AM CDT 03-18-2018 , Veronica Trinidad [address] [place] [phone] : 1975 Lab Order: CMP, lipid panel Fasting [x] Non-Fasting [] Normal [x] Stat [] To have drawn in 6 months Electronically Signed By: Rebekah Ang SENIOR DIRECTOR INSIGHT TOR OF PHOTOGRAPHY AND PRINTS documented in this encounter Plan of Treatment Not on file documented as of this encounter Visit Diagnoses Not on filedocumented in this encounter Care Teams Grade School Teacher Relationship Specialty Start Date End Date Mireille Austin MD [address] [place] [address] PCP - General 08/02/12 documented as of this encounter
--- OUTSIDE RECORDS SUMMARY | 2025-05-03 23:25 | XMS_ITS | Clinical Summary ---
Author Organization [place] [id number] [facility] Address [address] [place] [address] Care Team Providers Care Greaser Helper Name Role Phone Juan Pino MD Primary [...] 10/18/2023 10/18/2023 Body mass index 40.0-44.9, adult ([facility]) 10/18/2023 10/18/2023 Hypertensive disorder 04/11/20182023 Lipidemia 08/15/2016 [...] CDT Gender Identity Female 10/19/2023 10:26 AM AUDIT SPEC Sexual Orientation Straight 10/25/2023 7: 00 PM AUDIT SPEC Obstetrics History Para Term AB IAB SAB Ectopic Multiple Livin g Live Births 2 1 1 Date Outcome GA Total Labor Labor/2nd/3rd Weight Sex Type Anes PTL Adeline A1 A5 Name Clin Term Last Filed Vital Signs Vital Sign Reading Time Taken Comments Blood Pressure 126/82 11/20/2023 1:01 PM AUDIT SPEC Pulse 108 11/20/2023 1:01 PM AUDIT SPEC Temperature - - Respiratory Rate 18 11/20/2023 1:01 PM AUDIT SPEC Oxygen Saturation 93% 11/20/2023 1:01 PM AUDIT SPEC Inhaled Oxygen Concentration - - Weight 100.7 kg (222 lb) 11/20/2023 1:01 PM AUDIT SPEC Height 154.9 cm (5' 1) 11/20/2023 1:01 PM AUDIT SPEC Body Mass Index 41.95 11/20/2023 1:01 PM AUDIT SPEC Plan of Treatment Health Maintenance Due Date [...] Read Routine (OP Routine) 10/25/2023 3:42 PM AUDIT SPEC Annual physical exam THINPREP PAP Routine 01/27/2014 10:06 AM CDT from Last 3 Months or Most Recently Relevant to Health Maintenance Results * Screening Mammogram Bilateral W Tong (10/25/2023 3:42 PM AUDIT SPEC) Anatomical Region Laterality Modality Breast Bilateral Mammography Impressions 10/25/2023 4:06 PM AUDIT SPEC BI-RADS ATLAS category (overall): 1 - Negative There is no mammographic evidence of malignancy. A 1 year screening mammogram is recommended. The patient has been or will be contacted. We recommend annual screening mammography for women at average risk of breast cancer beginning at age 40, based on guidelines of the [place] [employer] (ACR Practice Parameter for the Performance of Screening and Diagnostic Mammography) and [place] [employer]. For women with and elevated risk of breast cancer, please refer to the ACR Practice Parameter for specific screening recommendations. The patient will be entered into a reminder system with a target due date of 1 year for her next screening exam. Narrative 10/25/2023 4:06 PM AUDIT SPEC Screening Mammogram Bilateral W Tong: 10/25/23 The [...] ThinPrep Pap (01/27/2014 10:06 AM CDT) Pathologist [facility] Thin Prep Pap Smear SEE BELOW () 02/03 11:44 AM CDT [employer] HISTORICAL RESULTS Comment: Information Technology Assistant ThinPrep Cytology Final Report ThinPrep Pap Specimen Source Cervix/Endocervix Specimen Adequacy Satisfactory for interpretation, endocervical cells (transformation zone) not present. Interpretation Negative for intraepithelial lesion or malignancy. 02/03/14 Upholsterer Assembly Line: PINA Andino(ASCP) 02/03/14 Verified By: PINA Andino(ASCP) electronic signature [facility], Department of Pathology For questions regarding this case, call ext. [phone] CPT Code(s) 45534 Clinical History LMP: N : N : N IUD: Y Hormone Therapy: N Postmenopausal: N Previous surgery date and type: N Hysterectomy: N Chemotherapy: N ISRAEL Exposure: N Radiation: N Previous Abnormal Pap? Details: N Diagnostic or Screening Pap Test: Screening Performed by [employer], [address] [place] [id number] [email or web address], Grant Bauer MD - Lab. Director 01/27/2014 10:0 6 AM CDT 01/28/2014 10:02 AM CDT us Luna Do NP LAB PATHOLOGY ORDERABLES Fin al Result [facility] [employer] HISTORICAL RESULTS from Last 3 Months or Most Recently Relevant to Health Maintenance Insurance [employer] [facility] BLUE [facility] OOS Care Teams Greaser Helper Relationship Specialty Start Date End Date Juan Pino MD [address] [place] [address] PCP - General Family Medicine 10/18/23
--- OUTSIDE RECORDS SUMMARY | 2025-05-03 23:25 | XMS_ITS | Encounter Summary ---
Author Organization [facility] Address [facility] [place] [address] Care Team Providers Care Catcher Helper Name Role Phone Mireille Austin MD Primary Care Provider Encounter Details Date Type Department Care Team (Late st Contact Info) Description 03/22/2019 Abstract [facility] CONVERSION [address] [place] [address] , Generic Conversion, Social History Tobacco Use [...] on filedocumented in this encounter Care Teams Catcher Helper Relationship Specialty Start Date End Date Mireille Austin MD [address] [place] [address] PCP - General 08/02/12 documented as of this encounter
--- OUTSIDE RECORDS SUMMARY | 2025-05-03 23:25 | XMS_ITS | Encounter Summary ---
Author Organization [facility] Facility Care Team Providers Care Sander Operator Name Role Phone Mireille Felton MD Primary Care Prov ider Juan Pino MD Primary Care Provi catina Encounter Details Date Type Department Care Team (Latest Contact Info) Description 12/30/2013 Orders Only [facility] CLINCONV ProviderDoug MD [address] [place] [address] Social History Tobacco Use Types Packs/Day Years Used Date Smoking Tobacco: Never Assessed Comments Unknown Sex and Gender Information Value Date Recorded Sex Assigned at Not on file Legal Sex Female 2:36 PM CDT Gender Identity Female 10/19/2023 10:26 AM ASSISTANT SALES DIRECTOR Sexual Orientation Straight 10/25/2023 7: 00 PM ASSISTANT SALES DIRECTOR documented as of this encounter Plan of [...] on filedocumented in this encounter Care Teams Sander Operator Relationship Specialty Start Date End Date Mireille Felton MD PCP - General Family Medicine 06/14/18 10/17/23 Juan Pino MD [address] [address] PCP - General Family Medicine 10/18/23 documented as of this encounter
--- OUTSIDE RECORDS SUMMARY | 2025-05-03 23:25 | XMS_ITS | Continuity of Care Document ---
Author Organization [facility] Address [address] [place] [address] Phone Care Team Providers Care Hospice Admitting Clerk Name Role Phone Irvin Joe PT Unavailable [...] Diagnoses Date Provider Providers Copied on Encounter [facility], [place], [place], [id number], tel:[phone] [place] Pain in right kneeStiffness of right knee, not elsewhere classifiedMuscle weakness (generalized)Other specified disorders of muscleUnspecified abnormalities of gait and mobility 8 Tatyana Bryan. . [facility], [place], [place], [id number], [place] tel:[phone] [place] Pain in right kneeStiffness of right knee, not elsewhere classifiedMuscle weakness (generalized)Other specified disorders of muscleUnspecified abnormalities of gait and mobility 8 Tatyana Bryan. . [facility], [place], [place], [id number], tel:[phone] [place] Pain in right kneeStiffness of right knee, not elsewhere classifiedMuscle weakness (generalized)Other specified disorders of muscleUnspecified abnormalities of gait and mobility 8 Tatyana Bryan. . [facility], [place], [place], [id number], tel:[phone] [place] Pain in right kneeStiffness of right knee, not elsewhere classifiedMuscle weakness (generalized)Other specified disorders of muscleUnspecified abnormalities of gait and mobility 8 Tatyana Bryan. . Family History Family Member Type Diagnosis Age At Onset No Information Payers Payer name Insurance type Covered alliance party ID Kera mendosa(s) [facility] [id number] Social History Type Description Quantity Date Captured [...]
--- OUTSIDE RECORDS SUMMARY | 2025-05-03 23:25 | XMS_ITS | Encounter Summary ---
Author Organization [facility] Address [facility] [place] [address] Care Team Providers Care Director Of Email Marketing Name Role Phone Mireille Austin MD Primary Care Provider Encounter Details Date Type Department Care Team (Latest Contact Info) Description 08/20/2018 Abstract [facility] , Generic Jermaine, Social History [...] on filedocumented in this encounter Care Teams Director Of Email Marketing Relationship Specialty Start Date End Date Mireille Austin MD [address] [place] [address] PCP - General 08/02/12 documented as of this encounter
--- OUTSIDE RECORDS SUMMARY | 2025-05-03 23:25 | XMS_ITS | Clinical Summary ---
Author Organization [facility] Address [address] [place] [address] Care Team Providers Care Long Chain Beamer Name Role Phone Mireille Austin MD Primary Care Provider Social History [...] to complete this topic Insurance Care Teams Long Chain Beamer Relationship Specialty Start Date End Date Mireille Austin MD [address] [place] [address] PCP - General 08/02/12
--- OUTSIDE RECORDS SUMMARY | 2025-05-03 23:25 | XMS_ITS | Referral Summary ---
Author Organization [place] [id number] Address [address] [place] [address] Care Team Providers Care Studio Operations Engineer In Charge Name Role Phone Juan Pino MD Primary [...] 10/18/2023 10/18/2023 Body mass index 40.0-44.9, adult ([facility]) 10/18/2023 10/18/2023 Hypertensive disorder 04/11/20182023 Lipidemia 08/15/2016 [...] CDT Gender Identity Female 10/19/2023 10:26 AM PLANT RELIABILITY ENGINEER Sexual Orientation Straight 10/25/2023 7: 00 PM PLANT RELIABILITY ENGINEER Last Filed Vital Signs Vital Sign Reading Time Taken Comments Blood Pressure 126/82 11/20/2023 1:01 PM PLANT RELIABILITY ENGINEER Pulse 108 11/20/2023 1:01 PM PLANT RELIABILITY ENGINEER Temperature - - Respiratory Rate 18 11/20/2023 1:01 PM PLANT RELIABILITY ENGINEER Oxygen Saturation 93% 11/20/2023 1:01 PM PLANT RELIABILITY ENGINEER Inhaled Oxygen Concentration - - Weight 100.7 kg (222 lb) 11/20/2023 1:01 PM PLANT RELIABILITY ENGINEER Height 154.9 cm (5' 1) 11/20/2023 1:01 PM PLANT RELIABILITY ENGINEER Body Mass Index 41.95 11/20/2023 1:01 PM PLANT RELIABILITY ENGINEER Plan of Treatment Not on file Procedures Procedure Name Priority Date/Time Associated Diagnosis Comments SCREENING MAMMOGRAM BILATERAL W TONG Schedule Routine, Read Routine (OP Routine) 10/25/2023 3:42 PM PLANT RELIABILITY ENGINEER Annual physical exam THINPREP PAP Routine 01/27/2014 10:06 AM CDT from Last 3 Months or Most Recently Relevant to Health Maintenance Results * Screening Mammogram Bilateral W Tong (10/25/2023 3:42 PM PLANT RELIABILITY ENGINEER) Anatomical Region Laterality Modality Breast Bilateral Mammography Impressions 10/25/2023 4:06 PM PLANT RELIABILITY ENGINEER BI-RADS ATLAS category (overall): 1 - Negative There is no mammographic evidence of malignancy. A 1 year screening mammogram is recommended. The patient has been or will be contacted. We recommend annual screening mammography for women at average risk of breast cancer beginning at age 40, based on guidelines of the [employer] [employer] (ACR Practice Parameter for the Performance of Screening and Diagnostic Mammography) and [place] [employer]. For women with and elevated risk of breast cancer, please refer to the ACR Practice Parameter for specific screening recommendations. The patient will be entered into a reminder system with a target due date of 1 year for her next screening exam. Narrative 10/25/2023 4:06 PM PLANT RELIABILITY ENGINEER Screening Mammogram Bilateral W Tong: 10/25/23 The [...] SEE BELOW () 02/03 11:44 AM CDT [facility] HISTORICAL RESULTS Comment: Video Game Producer ThinPrep Cytology Final Report ThinPrep Pap Specimen Source Cervix/Endocervix Specimen Adequacy Satisfactory for interpretation, endocervical cells (transformation zone) not present. Interpretation Negative for intraepithelial lesion or malignancy. 02/03/14 Operating Table Assembler: PINA Andino(ASCP) 02/03/14 Verified By: PINA Andino(ASCP) electronic signature [facility], Department of Pathology For questions regarding this case, call ext. [phone] CPT Code(s) 06187 Clinical History LMP: N : N : N IUD: Y Hormone Therapy: N Postmenopausal: N Previous surgery date and type: N Hysterectomy: N Chemotherapy: N ISRA[place] Exposure: N Radiation: N Previous Abnormal Pap? Details: N Diagnostic or Screening Pap Test: Screening Performed by [facility], [address] [place] [id number] [email or web address], Grant Bauer MD - Lab. Director 01/27/2014 10:0 6 AM CDT 01/28/2014 10:02 AM CDT us Luna Do SHACTOR HELPER LAB PATHOLOGY ORDERABLES Fin al Result [facility] HISTORICAL RESULTS from Last 3 Months or Most Recently Relevant to Health Maintenance Insurance [employer] [place] [employer] [place] OOS Care Teams Studio Operations Engineer In Charge Relationship Specialty Start Date End Date Juan Pino MD [address] [place] [address] PCP - General Family Medicine 10/18/23
--- NOTE | 2025-05-03 23:39 | ED_ITS ---
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 States that 29 years ago she sustained a significant skiing injury is been having some occasional intermittent troubles. Several weeks ago she felt like her patella dislocated medially and then pop back normally but she was able to ambulate afterwards. Today while she was trying to pull up her pain she knows that her patella dislocated medially and took a moment before relocated. She had significant pain on the medial aspect and inferior aspect of her patella. Not able to ambulate and took some crutches to get here. Took 800 mg of Naprosyn prior to arrival without any relief of symptoms. Was otherwise in her normal state of health. Denies any other symptoms such as footdrop, weakness in the extremity, difficulty ranging the hip or ankle, no numbness or sensation loss in the right lower extremity. No other traumatic injuries. Does have an orthopedic surgeon that she can see at [facility]. Related Data Allergies Allergy/AdvReac Type Severity Reaction Status Date / Time No Known Allergies Allergy Mild Unverified 05/03/25 23:27 Review of Systems Review of Systems: As reviewed above in HPI Exam Narrative: GENERAL: [Well-appearing, well-nourished, and in no acute distress.] HEAD: [Normocephalic, atraumatic.] EYES: [PERRLA and EOMI.] ENT: Nares clear, no rhinorrhea or epistaxis. Mucous membranes moist. NECK: Supple. CHEST: [Clear to auscultation. No respiratory distress.] HEART: [Regular rate and rhythm]. No murmur heard. 2+ peripheral pulses and warm extremity. ABDOMEN: [Soft, nondistended], [nontender], [No rigidity or guarding] EXTREMITIES: Tender to palpation over the inferior patella near the patellar tendon and medial joint line on the right knee. No instability with valgus or varus stress testing. Plantar and ankle received dorsiflexion is 5/5. Pain not reproducible with movement of the ankle or the hip. Able to hold extensor mechanism of the knee without difficulty. No crepitus or deformity. No obvious large suprapatellar effusion but there is some swelling to the knee globally. SKIN: Warm, dry, no rash. NEURO: [No focal deficits]. Alert and oriented [x3.] PSYCH: [Normal mood and affect.] Course Vital Signs Vital signs: Vital Signs Temperature 37.1 C 05/03/25 20:58 Pulse Rate 73 05/03/25 20:58 Respiratory Rate 16 05/03/25 20:58 Blood Pressure 165/111 H 05/03/25 20:58 Pulse Oximetry 97 05/03/25 20:58 Oxygen Delivery Room Air 05/03/25 20:58 Temperature 36.3 C L 05/04/25 02:04 Pulse Rate 76 05/04/25 02:04 Respiratory Rate 18 05/04/25 02:04 Blood Pressure 151/112 H 05/04/25 02:04 Pulse Oximetry 94 05/04/25 02:04 Oxygen Delivery Room Air 05/03/25 20:58 MDM - Extremity Injury (Lower) MDM Narrative Medical decision making narrative: 49-year-old female with a 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 States that 29 years ago she sustained a significant skiing injury is been having some occasional intermittent troubles. Several weeks ago she felt like her patella dislocated medially and then pop back normally but she was able to ambulate afterwards. Today while she was trying to pull up her pain she knows that her patella dislocated medially and took a moment before relocated. She had significant pain on the medial aspect and inferior aspect of her patella. Not able to ambulate and took some crutches to get here. Took 800 mg of Naprosyn prior to arrival without any relief of symptoms. Was otherwise in her normal state of health. Denies any other symptoms such as footdrop, weakness in the extremity, difficulty ranging the hip or ankle, no numbness or sensation loss in the right lower extremity. No other traumatic injuries. Does have an orthopedic surgeon that she can see at [facility]. Tender to palpation over the inferior patella near the patellar tendon and medial joint line on the right knee. No instability with valgus or varus stress testing. Plantar and ankle received dorsiflexion is 5/5. Pain not reproducible with movement of the ankle or the hip. Able to hold extensor mechanism of the knee without difficulty. No crepitus or deformity. No obvious large suprapatellar effusion but there is some swelling to the knee globally. Patient is not any pain when resting without movement or palpation. She has normal vital signs aside from her chronic hypertension. Strong symmetric pulses and warm extremity. Suspicion presently is for patellar dislocation status post spontaneous reduction, medial ligamentous or meniscal injury or tear. Low suspicion fracture or dislocation of the knee. X-rays were obtained with multiple views and she was provide intramuscular Dilaudid and Decadron for pain inflammation control as well as oral Robaxin for muscle relaxation. Discussed next steps including potential MRI imaging with orthopedics referral and immobilization with crutch support and patient was receptive. Awaiting x-rays and final disposition likely discharge home with ortho follow-up. X-rays were independently reviewed and also interpreted by radiology with no acute osseous abnormalities. Patient was able to get up and toe tap with some crunching assist to go to the bathroom which is a good sign. She was placed in knee immobilizer for comfort and stability and given prescription medications for home. She was given orthopedics referral and discharged home with all her questions answered. Medical Records Attestation: I reviewed the patient's medical records. Imaging Data Attestation: I personally reviewed and interpreted this imaging study as follows: My impression: Unremarkable knee x-rays. Discharge Plan Discharge Clinical Impression: Acute internal derangement of knee, Acute knee pain Patient Disposition: Home Condition: Stable Instructions: Antibiotic Form, Knee Pain (ED) Additional Instructions: X-rays do not show any bony anomalies or malalignment. The ligamentous or internal structure the knee might have some derangements or tears secondary to the injury today. Wear the knee immobilizer for comfort, ambulation with as much weight-bearing as you can tolerate and crutches for support. Follow-up with orthopedics and we will send you home with strong pain medicines to get through the next few days. Patient Language: Korean Prescriptions: New ketorolac 10 mg tablet 10 mg PO Q8H PRN (Reason: pain) 5 Days Qty: 20 0RF Rx Instructions: maximum total duration of 5 days from all oral, intranasal, or parenteral formulations methocarbamol 750 mg tablet 750 mg PO TID PRN (Reason: pain) Qty: 20 0RF lidocaine 5 % adhesive patch,medicated 1 patch topical DAILY Qty: 15 0RF Rx Instructions: leave on most painful area for up to 12 hrs tramadol 50 mg tablet 50 mg PO Q6H PRN (Reason: pain) Qty: 14 0RF Follow-up/Referrals: Odette,Juan Posada M.D. [Primary Care Provider] - Jason Johnson MD [Physician] - 1 Week (Internal knee injury) Time of Disposition: 02:14
[2025-05-03] MEDS: dexAMETHasone SOD PHOS INJ 10 MG/ML 1 ML VIAL IM (23:46)
[2025-05-03] MEDS: HYDROmorphone HCL INJ (*CRX) 2 MG/ML VIAL 1 MG IM (23:46)
[2025-05-04 00:35] VITALS: BP 156/100; PULSE 84; RESP 18; TEMP 36.6; O2SAT 97
[2025-05-04 02:04] VITALS: BP 151/112; PULSE 76; RESP 18; TEMP 36.3; O2SAT 94
[2025-05-04] MEDS: HYDROmorphone HCL INJ (*CRX) 2 MG/ML VIAL 1 MG IM (02:29)
== END 2025-05-04 02:52 | disposition home or self-care (01) ==
PROVIDERS: Emergency Provider Student in an Organized Health Care Education/Training Program; PCP Family Medicine
DX: M23.91 Unspecified internal derangement of right knee (principal); S89.91XA Unspecified injury of right lower leg, initial encounter; X50.9XXA Other and unspecified overexertion or strenuous movements or postures, initial encounter
CPT/HCPCS: 73562; 96372; 99284; A9270; J1100; J1171

== ENCOUNTER 2025-05-21 11:04 | Outpatient (CLI) | payer BC, SELFPAY ==
--- OUTSIDE RECORDS SUMMARY | 2025-05-21 11:09 | XMS_ITS | Encounter Summary ---
Author Organization [facility] Address [address] [place] [address] Care Team Providers Care Outpatient Case Manager Name Role Phone Mireille Austin MD Primary Care Provider Encounter Details Date Type Department Care Team (Late st Contact Info) Description 03/18/2018 Abstract [facility] Conversion Rebekah Ang FNP-BC [address] [facility], [place] [address] Social History Tobacco Use Types Packs/Day Years [...] AM CDT 03-18-2018 , Veronica Trinidad [address] [place] [address] : 1975 Lab Order: CBC with diff R79.9 abnormal finding of blood chemistry, unspecified Fasting [] Non-Fasting [] Normal [x] Stat [] To have drawn in 1 month Electronically Signed By: Rebekah Ang JEWEL STRINGER ER * Letter - SATISH Garcia - 03/18/2018 12:00 AM CDT 03-18-2018 , Veronica Trinidad [address] [place] [address] : 1975 Lab Order: CMP, lipid panel Fasting [x] Non-Fasting [] Normal [x] Stat [] To have drawn in 6 months Electronically Signed By: Rebeakh Ang JEWEL STRINGER ER documented in this encounter Plan of Treatment Not on file documented as of this encounter Visit Diagnoses Not on filedocumented in this encounter Care Teams Outpatient Case Manager Relationship Specialty Start Date End Date Mireille Austin MD [address] [place] [address] PCP - General 08/02/12 documented as of this encounter
--- OUTSIDE RECORDS SUMMARY | 2025-05-21 11:09 | XMS_ITS | Encounter Summary ---
Author Organization [facility] Address [facility] [place] [address] Care Team Providers Care Display Associate Name Role Phone Mireille Austin MD Primary Care Provider Encounter Details Date Type Department Care Team (Late st Contact Info) Description 03/22/2019 Abstract [facility] [address] [place] [address] , Generic Conversion, Social History Tobacco Use [...] on filedocumented in this encounter Care Teams Display Associate Relationship Specialty Start Date End Date Mireille Austin MD [address] [place] [address] PCP - General 08/02/12 documented as of this encounter
--- OUTSIDE RECORDS SUMMARY | 2025-05-21 11:09 | XMS_ITS | Encounter Summary ---
Author Organization [facility] Address [address] [place] [address] Care Team Providers Care Staff Counsel Name Role Phone Juan Pino MD Primary Care [facility] Encounter Details Date Type Department Care Team (Late st Contact Info) Description 05/20/2025 Telephone [facility] Orthopedics and Sports Medicine [address] [place] [address] [address] [place] [address] Corby Munroe MD [address] [place] [address] [facility] [address] [place] [address] Social History Tobacco Use Types Packs/Day Years Used Date Smoking Tobacco: Some Days Cigarettes 0.5 30 Smokeless Tobacco: Never PHQ-2 Answer Date Recorded PHQ-2 Total Score (If total score is 3 or more points, staff should administer the PHQ-9) 0 05/20/2025 Comments No Sex and Gender Information Value Date Recorded Sex Assigned at Not on file Legal Sex Female 2:36 PM CDT Gender Identity Female 10/19/2023 10:26 AM CAGE TENDER Sexual Orientation Straight 10/25/2023 7: 00 PM CAGE TENDER documented as of this encounter Miscellaneous Notes * Telephone Encounter - Tierra Mahmood - 05/21/2025 9:25 AM CDT Pt scheduled 06/03/25 Edw * Telephone Encounter - Alesha Peralta PA - 05/20/2025 4:13 PM CDT May schedule with Dr. Munroe for surgical consultation. * Telephone Encounter - Tierra Mahmood - 05/20/2025 2:41 PM CDT Referral R Knee Meniscus tear please advise if this is appropriate Same Day or Next Avail thank you! Narrative & Impression EXAMINATION: 1. MRI right knee without contrast HISTORY: Patellar dislocation injury. FINDINGS: Comparison is made with radiograph dated 05/05/2025. MR examination of the right knee was performed with an extremity coil. No intravenous or intra-articular contrast was administered for this examination. Sagittal fast spin-echo images, coronal short TR/TE and fast spin-echo images, and transverse fast spin-echo images were obtained. In the medial compartment, there is a complex tear of the body and posterior horn of the meniscus with flipped bucket-handle component displaced into the intercondylar notch and incomplete radial tear of the posterior meniscal root There is no significant meniscal extrusion.. There is mild partial-thickness chondrosis. In the lateral compartment, the meniscus is intact. There is a small focal full-thickness chondral lesion in the weightbearing central femoral condyle.. There is no subchondral edema. In the patellofemoral compartment, there is moderate deep partial and full-thickness chondrosis of the central patellar ridge and medial facet with subchondral edema. There is a partial chondral flap involving the central eminence and lateral patellar facet. There is mild trochlear chondrosis. The patella is normally seated within the trochlea. The medial patellofemoral ligament appears intact. There is a high-grade sprain of the anterior cruciate ligament. The posterior cruciate and collateral ligaments are intact.. The extensor mechanism is normal. The popliteus tendon is normal. There is a moderate knee joint effusion and synovitis. No loose bodies are identified. The bone marrow signal is normal. IMPRESSION: 1. Complex tear of the medial meniscus with displaced bucket-handle fragment into the intercondylar notch and partial radial tear of the posterior root. 2. Moderate patellofemoral compartment predominant tricompartmental chondrosis with nondisplaced chondral flap of the median patellar eminence and lateral facet. 3. Moderate joint effusion and synovitis. 4. No evidence of sequelae of patellar dislocation-relocation injury. documented in this encounter Plan of Treatment Not on file documented as of this encounter Visit Diagnoses Not on filedocumented in this encounter Care Teams Staff Counsel Relationship Specialty Start Date End Date Juan Pino MD [address] [address] PCP - General Family Medicine 10/18/23 documented as of this encounter
--- OUTSIDE RECORDS SUMMARY | 2025-05-21 11:09 | XMS_ITS | Encounter Summary ---
Author Organization [facility] Healthcare Address [address] [place] [address] Care Team Providers Care Pictures Editor Name Role Phone Juan Pino MD Primary Care Provi [facility] Reason for Referral * Consultation (Routine) - Closed Specialty Diagnoses / Procedures Referred By Contac t Referred To Contact Orthopedic Surgery Diagnoses Bucket-handle tear of medial meniscus of right knee as current injury, subsequent encounter Kim Hathaway NP [address] [address] Phone: tel: fax: Corby Munroe MD [address] [place] [address] [address] [address] Phone: tel: fax: Referral ID Status Reason Start Date Expiration Date V isits Requested Visits Authorized [id number] Closed Specialty Services Required 05/20/2025 06/19/2026 8 8 Question Answer Please select the performing region: [facility] [[id number]] Please select the performing department: [facility] [[id number]] To Provider NOTE: we will do our best to honor your provider preference, but scheduling the patient in a timely manner in our clinic will take precedence. CORBY MUNROE [[id number]] # of visits: 8 Encounter Details Date Type Department Care Team (Late st Contact Info) Description 05/20/2025 11:00 AM CDT Office Visit [facility] Family Medicine [address] [place] [address] Kim Hathaway NP [address] [place], [place] [id number] Essential hypertension (Primary Dx); Bucket-handle tear of medial meniscus of right knee as current injury, subsequent encounter; Morbid obesity with BMI of 40.0-44.9, adult (HCC); Cigarette nicotine dependence without complication; Annual physical exam Social History Tobacco Use Types Packs/Day Years Used Date Smoking Tobacco: Some Days Cigarettes 0.5 30 Smokeless Tobacco: Never Tobacco Cessation:Ready to Q uit: Yes; Counseling Given: Not Answered PHQ-2 Answer Date Recorded PHQ-2 Total Score (If total score is 3 or more points, staff should administer the PHQ-9) 0 05/20/2025 Comments No Sex and Gender Information Value Date Recorded Sex Assigned at Not on file Legal Sex Female 2:36 PM CDT Gender Identity Female 10/19/2023 10: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 Sexual Orientation Straight 10/25/2023 7: 00 PM YARN TEXTURE MACHINE OPERATOR documented as of this encounter Last Filed Vital Signs Vital Sign Reading Time Taken Comments Blood Pressure 110/80 05/20/2025 10:59 AM CDT Pulse 100 05/20/2025 10:59 AM CDT Temperature - - Respiratory Rate 20 05/20/2025 10:59 AM CDT Oxygen Saturation 98% 05/20/2025 10:59 AM CDT Inhaled Oxygen Concentration - - Weight 102.1 kg (225 lb) 05/20/2025 10:59 AM CDT Height 158.8 cm (5' 2.5) 05/20/2025 10:59 AM CD T Body Mass Index 40.5 05/20/2025 10:59 AM CDT documented in this encounter Ordered Prescriptions Prescription Sig Dispense Quantity Refills Last Filled Start Date End Date varenicline tartrate (CHANTIX SINA) 0.5 mg (11)- 1 mg (42) tablet Use as directed on package instructions, try to quit smoking after 1 week. 53 tablet 05/20/2025 5 valsartan-hydroCHL OROthiazide (DIOVAN-HCT) 80-12.5 mg per tabletIndications: hypertension Take 1 tablet by mouth daily 90 tablet 3 05/20/2025 6 documented in this encounter Progress Notes * TriciasteffiKim santiago, YARD HAND - 05/20/2025 11:00 AM CDT Images from the original note were not included. Subjective/Objective Patient ID: Veronica Trinidad is a 49 y.o. female. Encounter date: 05/20/2025 Chief Complaint No chief complaint on file. HPI Patient presenting in office today after she underwent a recent MRI and was found to have a meniscus tear. She is needing a referral to an orthopedic surgeon. MRI reviewed. She also reports she was prescribed blood pressure medications previously, but did not take. Her recently had a heart a ttack, so she started taking her blood pressure medications and since then blood pressures have been good. She is interested in a medication to help her quit smoking. Current Outpatient Medications Medication Sig Dispense Refill meloxicam (MOBIC) 15 mg tablet Take 1 tablet (15 mg total) by mouth daily Take 1 daily with food (Patient not taking: Reported on 05/20/2025) 30 tablet 0 methocarbamoL (ROBAXIN) 750 mg tablet (Patient not taking: Reported on 05/20/2025) traMADoL (ULTRAM) 50 mg tablet (Patient not taking: Reported on 05/20/2025) valsartan-hydroCHLOROthiazide (DIOVAN-HCT) 80-12.5 mg per tablet Take 1 tablet by mouth daily 90 tablet 3 varenicline tartrate (CHANTIX SINA) 0.5 mg (11)- 1 mg (42) tablet Use as directed on package instructions, try to quit smoking after 1 week. 53 tablet 0 No current facility-administered medications for this visit. Patient has no known allergies. Social History Tobacco Use Smoking status: Some Days Current packs/day: 0.50 Average packs/day: 0.5 packs/day for 30.0 years (15.0 ttl pk-yrs) Types: Cigarettes Smokeless tobacco: Never Substance and Sexual Activity Drug use: Yes Types: Marijuana Comment: 1.75 liter [employer] weekly Sexual activity: Not Currently Partners: Male control/protection: I.U.D. Alcohol Use: Not on file Review of Systems Constitutional: Negative for chills and fever. Respiratory: Negative for chest tightness and shortness of breath. Cardiovascular: Negative for chest pain and palpitations. Musculoskeletal: Right leg pain All other systems reviewed and are negative. Vitals BP 110/80 Pulse 100 Resp 20 Ht 158.8 cm (5' 2.5) Wt 102.1 kg (225 lb) SpO2 98% BMI 40.50 kg/m?? Physical Exam Vitals and nursing note reviewed. Constitutional: Appearance: Normal appearance. She is obese. Cardiovascular: Rate and Rhythm: Normal rate and regular rhythm. Pulmonary: Breath sounds: Normal breath sounds. Neurological: Mental Status: She is alert and oriented to person, place, and time. Psychiatric: Mood and Affect: Mood normal. Answers submitted by the patient for this visit: Lower Extremity Injury Questionnaire (Submitted on 05/20/2025) Chief Complaint: Lower extremity pain Incident occurred: more than 1 week ago Incident location: at home Injury mechanism: a fall, a twisting injury Pain location: right knee Pain quality: aching, burning, cramping, shooting, stabbing Pain - numeric: 7/10 Pain course: fluctuating tingling: No inability to bear weight: No loss of motion: Yes loss of sensation: No muscle weakness: Yes Foreign body present: no foreign bodies Aggravated by: movement, palpation, weight bearing Assessment/Plan Assessment & Plan Essential hypertension Chronic. Blood pressure is stable at this time. Continue valsartan- hydrochlorothiazide 80-12.5 mg daily. Check labs in 2 weeks and follow up for annual Bucket-handle tear of medial meniscus of right knee as current injury, subsequent encounter MRI reviewed referral placed to Orthopedic surgery Orders: Ambulatory referral to Orthopedic Surgery; Future Morbid obesity with BMI of 40.0-44.9, adult (HCC) Encouraged healthy diet and exercise Cigarette nicotine dependence without complication Patient has been advised on smoking cessation. Spent more than 3 minutes discussing the benefits ofcessation, as well as the risks of persistent tobacco use. Patient would like to start Chantix. Starter pack sent Annual physical exam Follow up with labs Orders: Comprehensive metabolic panel; Future Lipid panel; Future Return in about 4 weeks (around 06/17/2025) for Annual physical video. Kim Hathaway NP documented in this encounter Miscellaneous Notes * Assessment & Plan Note - Kim Hathaway NP - 05/20/2025 11:00 AM CDT Associated Problem(s): Essential hypertension Chronic. Blood pressure is stable at this time. Continue valsartan- hydrochlorothiazide 80-12.5 mg daily. Check labs in 2 weeks and follow up for annual * Assessment & Plan Note - Kim Hathaway NP - 05/20/2025 11:00 AM CDT Associated Problem(s): Cigarette nicotine dependence without complication Patient has been advised on smoking cessation. Spent more than 3 minutes discussing the benefits ofcessation, as well as the risks of persistent tobacco use. Patient would like to start Chantix. Starter pack sent documented in this encounter Plan of Treatment Scheduled Orders Name Type Priority Associated Diagnoses Orde r Schedule Comprehensive metabolic panel Lab Routine Annual physical exam Expected: 05/20/2025, Expires: 05/20/2026 Lipid panel Lab Routine Annual physical exam Expected: 05/20/2025, Expires: 05/20/2026 Scheduled Referrals Name Type Priority Associated Diagnoses Order Schedule Ambulatory referral to Orthopedic Surgery Outpatient Referral Routine Bucket-handle tear of medial meniscus of right knee as current injury, subsequent encounter Expected: 05/20/2025, Expires: 06/20/2025 documented as of this encounter Visit Diagnoses Diagnosis Essential hypertension- Primary Unspecified essential hypertension Bucket-handle tear of medial meniscus of right knee as current injury, subsequent encounter Morbid obesity with BMI of 40.0-44.9, adult (HCC) Cigarette nicotine dependence without complication Annual physical exam Routine general medical examination at a health care facility documented in this encounter Discontinued Medications Medication Sig Discontinue Reason Start Date End Da te aspirin 81 mg enteric coated tablet Take 1 tablet (81 mg total) by mouth daily Therapy completed 05/20/2025 ketorolac (TORADOL) 10 mg tablet Therapy completed 05/04/2025 05/20/2025 lidocaine-menthol 4-1 % adhesive patch,medicated Apply topically Therapy completed 05/20/2025 valsartan-hydroCHLOROth iazide (DIOVAN-HCT) 80-12.5 mg per tabletIndications:hyper tension Take 1 tablet by mouth daily Reorder 11/20/2023 05/20/2025 documented as of this encounter Care Teams Pictures Editor Relationship Specialty Start Date End Date Juan Pino MD [address] [address] PCP - General Family Medicine 10/18/23 documented as of this encounter
--- OUTSIDE RECORDS SUMMARY | 2025-05-21 11:09 | XMS_ITS | Clinical Summary ---
Author Organization [address] Address Formerly [facility] [place] [address] Care Team Providers Care Leather Crafter Name Role Phone Juan Pino MD Primary Care Provi catina Allergies No known active allergies Medications methocarbamoL (ROBAXIN) 750 mg tablet 5 Active traMADoL (ULTRAM) 50 mg tablet 5 Active meloxicam (MOBIC) 15 mg tablet Take 1 tablet (15 mg total) by mouth daily Take 1 daily with food 30 tablet 5 06/04/20 25 Active Additional Information Patient not taking.Reported on 05/20/2025 valsartan-hydr oCHLOROthiazid e (DIOVAN-HCT) 80-12.5 mg per tabletIndicati ons:hypertensi on Take 1 tablet by mouth daily 90 tablet 3 5 05/15/20 26 Active varenicline tartrate (CHANTIX SINA) 0.5 mg (11)- 1 mg (42) tablet Use as directed on package instructions, try to quit smoking after 1 week. 53 tablet 5 08/18/20 25 Active aspirin 81 mg enteric coated tablet Take 1 tablet (81 mg total) by mouth daily 05/20/20 25 Discontin ued(Thera py completed ) valsartan-hydr oCHLOROthiazid e (DIOVAN-HCT) 80-12.5 mg per tabletIndicati ons:hypertensi on Take 1 tablet by mouth daily 90 tablet 3 4 05/20/20 25 Discontin ued(Reord er) ketorolac (TORADOL) 10 mg tablet 5 05/20/20 25 Discontin ued(Thera py completed ) lidocaine-ment hol 4-1 % adhesive patch,medicate d Apply topically 05/20/20 25 Discontin ued(Thera py completed ) Active Problems Problem Noted Date Diagnosed Date Cigarette nicotine dependence without complicati on 05/20/2025 Assessment & Plan (05/20/2025 11:24 AM CDT): Patient has been advised on smoking cessation. Spent more than 3 minutes discussing the benefits of cessation, as well as the risks of persistent tobacco use. Patient would like to start Chantix. Starter pack sent Mixed anxiety and depressive disorder 01/20/2021 Hyperlipidemia 04/11/2018 Essential hypertension 04/11/2018 Assessment & Plan (05/20/2025 11:24 AM CDT): Chronic. Blood pressure is stable at this time. Continue valsartan-hydrochlorothiazide 80-12.5 mg daily. Check labs in 2 weeks and follow up for annual Depression 08/15/2016 Resolved Problems Problem Noted Date Diagnosed Date Resolved Date Morbid (severe) obesity due to excess calories 10/18/2023 10/18/2023 Body mass index 40.0-44.9, adult ([facility]/HCC) 10/18/2023 10/18/2023 Hypertensive disorder 04/11/20182023 Lipidemia 08/15/2016 10/18/2023 Essential (primary) hypertension 08/15/2016 10/18/2023 Encounters Date Type Department Care Team Description 05/20/2025 11:00 AM CDT Office Visit [facility] Family Medicine [address] [place] [address] Kim Hathaway NP Essential hypertension (Primary Dx); Bucket-handle tear of medial meniscus of right knee as current injury, subsequent encounter; Morbid obesity with BMI of 40.0-44.9, adult ([facility]); Cigarette nicotine dependence without complication; Annual physical exam 05/20/2025 Telephone [facility] and [facility] Medicine [address] [place] [address] Cobry Munroe MD 05/11/2025 Results Follow-Up [facility] Orthopaedic Surgery [address] [place] [address] Leti Howard PA MRI Knee Right WO Contrast 05/10/2025 1:31 PM CDT - 05/10/2025 11:59 PM CDT Hospital Encounter [facility] [address] [place] [address] Acute pain of right knee; Closed dislocation of right patella, initial encounter Discharge Disposition: Discharge to home or self care 05/05/2025 9:38 AM CDT - 05/05/2025 11:59 PM CDT Hospital Encounter [facility] Orthopedic Imaging [address] [place] [address] Discharge Disposition: Discharge to home or self care 05/05/2025 9:20 AM CDT Office Visit [facility] Orthopaedic Surgery [address] [place] [address] Leti Howard PA Acute pain of right knee (Primary Dx); Closed dislocation of right patella, initial encounter from Last 3 Months Immunizations Immunization Administration Dates Next Due Influenza, Unspecified 11/20/2023(Deferr ed: Patient Refused),10/18/2023(Deferred: Patient Refused) Surgical History Surgery Date Site/Laterality Comments APPENDECTOMY Medical History Medical History Date Comments Arthritis Pulmolithiasis Migraines in the past Depression Hypertension Family History Medical History Relation Name Comments Arthritis Brother Mental illness Brother Arthritis Father Depression Father Gout Father Hypertension Father Mental illness Father Alzheimer's disease Maternal Grandfather Arthritis Mother Depression Mother Hypertension Mother Kidney disease Mother Mental illness Mother Heart attack Paternal Grandfather Breast cancer Paternal Great-Grandmother Relation Name Status Comments Brother Father Alive Maternal Grandfather Mother Paternal Grandfather Paternal Great-Grandmother Social History Tobacco Use Types [...] CDT Gender Identity Female 10/19/2023 10:26 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 Sexual Orientation Straight 10/25/2023 7: 00 PM DIRT BIKE RACER Obstetrics History Para Term AB IAB SAB [...] Mass Index 40.5 05/20/2025 10:59 AM CDT Plan of Treatment Health Maintenance Due Date Last Done Comments Colon Cancer Screening-Colonoscopy 1977 Hepatitis C Screening 1977 DTaP/Tdap/Td Vaccine (1 - Tdap) 1988 Hepatitis B Screening 1995 Pneumococcal vaccine <65 (1 of 2 - PCV) 1996 Cervical Cancer Screening 01/27/2015 01/27/2014 Breast Cancer Screening-Mammogram 10/25/2024 024 Regular Well Visit/Exam 18-64 11/20/2024 11/20/2023 Influenza Vaccine (#1) 2025 Depression Screening 05/20/2026 05/20/2025, 10/18/19 24 Procedures Procedure Name Priority Date/Time Associated Diagnosis Comments MRI KNEE RIGHT WO CONTRAST Schedule Routine, Read Routine (OP Routine) 05/10/2025 2:21 PM CDT Acute pain of right knee Closed dislocation of right patella, initial encounter XR KNEE RIGHT 3 VIEWS Schedule Routine, Read Routine (OP Routine) 05/05/2025 9:47 AM CDT Acute pain of right knee XR KNEE RIGHT 3 VIEWS Schedule Routine, Read Routine (OP Routine) 05/04/2025 9:04 AM CDT SCREENING MAMMOGRAM BILATERAL W TONG Schedule Routine, Read Routine (OP Routine) 10/25/2023 3:42 PM DIRT BIKE RACER Annual physical exam THINPREP PAP Routine 01/27/2014 10:06 AM CDT from Last 3 Months or Most Recently Relevant to Health Maintenance Results * MRI Knee Right WO Contrast (05/10/2025 2:21 PM CDT) Anatomical Region Laterality Modality Lower Extremities Right Magnetic Reson ance 05/10/2025 5:13 PM CDT Impressions 05/10/2025 5:13 PM CDT 1. Complex tear of the medial meniscus with displaced bucket-handle fragment into the intercondylar notch and partial radial tear of the posterior root. 2. Moderate patellofemoral compartment predominant tricompartmental chondrosis with nondisplaced chondral flap of the median patellar eminence and lateral facet. 3. Moderate joint effusion and synovitis. 4. No evidence of sequelae of patellar dislocation-relocation injury. Electronically signed by: Niles Hagen M.D. Narrative 05/10/2025 5:13 PM CDT EXAMINATION: 1. MRI right knee without contrast [...] identified. The bone marrow signal is normal. Procedure Note Niles Hagen MD - 05/10/2025 EXAMINATION: 1. MRI right knee without contrast [...] evidence of sequelae of patellar dislocation-relocation injury. Electronically signed by: Niles Hagen M.D. [facility] MRI PROCEDURES Final Result * XR Knee Right 3 View (05/05/2025 9:47 AM CDT) Anatomical Region Laterality Modality Lower Extremities, Knee Right Digital Radiography 05/05/2025 11:3 6 AM CDT Narrative 05/05/2025 11:36 AM CDT EXAMINATION: XR KNEE RIGHT 3 VIEWS DATE: 05/05/2025 9:45 AM HISTORY: right knee pain COMPARISON: None. FINDINGS: Bony mineralization is normal. Joint spaces are preserved. No acute fracture or dislocation. No joint effusion. Electronically signed by: Gerald Garza M.D. Procedure Note Gerald Garza MD - 05/05/2025 EXAMINATION: XR KNEE RIGHT 3 VIEWS DATE: 05/05/2025 9:45 AM HISTORY: right knee pain COMPARISON: None. FINDINGS: Bony mineralization is normal. Joint spaces are preserved. No acute fracture or dislocation. No joint effusion. Electronically signed by: Gerald Garza M.D. [facility] XR PROCEDURES Final R esult * XR Knee Right 3 Views (05/04/2025 9:04 AM CDT) Anatomical Region Laterality Modality Lower Extremities, Knee Right Radiogra phic Imaging Zeferino Stapleton MD IMG XR PROCEDURES Ita l Result * Screening Mammogram Bilateral W Tong (10/25/2023 3:42 PM DIRT BIKE RACER) Anatomical Region Laterality Modality Breast Bilateral Mammography Impressions 10/25/2023 4:06 PM DIRT BIKE RACER BI-RADS ATLAS category (overall): 1 - Negative There is no mammographic evidence of malignancy. A 1 year screening mammogram is recommended. The patient has been or will be contacted. We recommend annual screening mammography for women at average risk of breast cancer beginning at age 40, based on guidelines of the [employer] (ACR Practice Parameter for the Performance of Screening and Diagnostic Mammography) and [place]. For women with and elevated risk of breast cancer, please refer to the ACR Practice Parameter for specific screening recommendations. The patient will be entered into a reminder system with a target due date of 1 year for her next screening exam. Narrative 10/25/2023 4:06 PM DIRT BIKE RACER Screening Mammogram Bilateral W Tong: 10/25/23 The [...] within either breast. us Juan Pino MD [facility] MAMMO PROCEDURE S Final Result * ThinPrep Pap (01/27/2014 10:06 AM CDT) Thin Prep Pap Smear SEE BELOW () 02/03 11:44 AM CDT [facility] HISTORICAL RESULTS Comment: Pre Certification Specialist ThinPrep Cytology Final Report ThinPrep Pap Specimen Source Cervix/Endocervix Specimen Adequacy Satisfactory for interpretation, endocervical cells (transformation zone) not present. Interpretation Negative for intraepithelial lesion or malignancy. 02/03/14 Barrel And Receiver Aligner: PINA Andino(ASCP) 02/03/14 Verified By: PINA Andino(ASCP) electronic signature [facility] Department of Pathology For questions regarding this case, call ext. [phone] CPT Code(s) 08370 Clinical History LMP: N : N : N IUD: Y Hormone Therapy: N Postmenopausal: N Previous surgery date and type: N Hysterectomy: N Chemotherapy: N [place] Exposure: N Radiation: N Previous Abnormal Pap? Details: N Diagnostic or Screening Pap Test: Screening Performed by [facility] [employer], [address] [place] [id number] [email or web address], Grant Bauer MD - Lab. Director 01/27/2014 10:0 6 AM CDT 01/28/2014 10:02 AM CDT us Luna Do NP LAB PATHOLOGY ORDERABLES Fin al Result Performing Organization Address City/State/[facility] Co de Phone Number [facility] HISTORICAL RESULTS from Last 3 Months or Most Recently Relevant to Health Maintenance Insurance [place] ACC CHOICE OOS BLUE ACC CHOICE OOS Care Teams Leather Crafter Relationship Specialty Start Date End Date Juan Pino MD [address] [place] [address] PCP - General Family Medicine 10/18/23
--- OUTSIDE RECORDS SUMMARY | 2025-05-21 11:09 | XMS_ITS | Encounter Summary ---
Author Organization [facility] Care Team Providers Care Electric Truck Operator Name Role Phone Mireille Felton MD Primary Care Prov ider Juan Pino MD Primary Care Provi catina Encounter Details Date Type Department Care Team (Latest Contact Info) Description 12/30/2013 Orders Only [facility] CLINCONV ProviderDoug MD [address] [place] [address] Social History Tobacco Use Types Packs/Day Years Used Date Smoking Tobacco: Never Assessed Comments Unknown Sex and Gender Information Value Date Recorded Sex Assigned at Not on file Legal Sex Female 2:36 PM CDT Gender Identity Female 10/19/2023 10:26 AM ANVILSMITH Sexual Orientation Straight 10/25/2023 7: 00 PM ANVILSMITH documented as of this encounter Plan of [...] on filedocumented in this encounter Care Teams Electric Truck Operator Relationship Specialty Start Date End Date Mireille Felton MD PCP - General Family Medicine 06/14/18 10/17/23 Juan Pino MD [address] [address] PCP - General Family Medicine 10/18/23 documented as of this encounter
--- OUTSIDE RECORDS SUMMARY | 2025-05-21 11:09 | XMS_ITS | Encounter Summary ---
Author Organization [facility] Address [facility] [place] [address] Care Team Providers Care Flag Maker Name Role Phone Mireille Austin MD Primary Care Provider Encounter Details Date Type Department Care Team (Latest Contact Info) Description 08/20/2018 Abstract [facility] , Generic Jermaine, Social History [...] on filedocumented in this encounter Care Teams Flag Maker Relationship Specialty Start Date End Date Mireille Austin MD [address] [place] [address] PCP - General 08/02/12 documented as of this encounter
--- OUTSIDE RECORDS SUMMARY | 2025-05-21 11:09 | XMS_ITS | Clinical Summary ---
Author Organization [facility] Address [address] [place] [address] Care Team Providers Care Sourcing Manager Name Role Phone Mireille Austin MD [...] to complete this topic Insurance Care Teams Sourcing Manager Relationship Specialty Start Date End Date Mireille Austin MD [address] [place] [address] PCP - General 08/02/12
[2025-05-21 11:41] LABS: Alanine Aminotransferase 36 U/L (6-35); Albumin Level 4.7 g/dL (3.5-5.1); Alkaline Phosphatase 57 U/L (38-126); Anion Gap 9 mmol/L (4-12); Aspartate Amino Transferase 32 U/L (14-36); Bilirubin,Total 0.8 mg/dL (0.2-1.3); Blood Urea Nitrogen 21 mg/dL (7-17); Calcium 10.0 mg/dL (8.4-10.2); Carbon Dioxide 28 mmol/L (22-30); Chloride 101 mmol/L (98-107); Cholesterol 298 mg/dL (0-200); Estimated Glomerular Filt Rate 52; Glucose 104 mg/dL (65-110); HDL Direct 50 mg/dL; Potassium 4.3 mmol/L (3.4-5.0); Sodium 138 mmol/L (137-145); Total Protein 8.1 g/dL (6.3-8.2); Triglycerides 165 mg/dL (<150)
== END 2025-05-21 11:05 | disposition home or self-care (01) ==
LOC: ANHLAB 11:06
PROVIDERS: PCP Family Medicine; Visit Provider Family Medicine
DX: Z00.00 Encounter for general adult medical examination without abnormal findings (principal)
CPT/HCPCS: 36415; 80053; 80061